=== PATIENT | female | born 1965 | race Caucasian/White ===

== ENCOUNTER 2018-02-15 17:35 | Inpatient (IN) ==
[2018-02-15] MEDS ORDERED: ONDANSETRON 4 MG/2 ML VIAL IV PRN (19:40)
[2018-02-15] MEDS ORDERED: NALOXONE HCL 0.4 MG/ML VIAL IV PRN (19:40)
[2018-02-15] MEDS ORDERED: ACETAMINOPHEN 325 MG TABLET PO PRN (19:40)
[2018-02-15] MEDS ORDERED: MAGNESIUM HYDROXIDE 30 ML ORAL.SUSP PO PRN (19:40)
[2018-02-15] MEDS ORDERED: SENNOSIDES 1 TABLET PO PRN (19:40)
--- NOTE | 2018-02-15 19:54 | Nephrology Consult Note ---
History of Present Illness - Reason for Consult Patient information: Note initiated : 02/15/18 at 7:31 pm Service Date, if different from initiated Date: [] Patient: Teressa Goodman 52 y/o F admitted on 02/15/18 for Hypocalcemia and CHS. Chief Complaint: [] Consult date: 02/15/18 end stage renal disease, hyperkalemia Requesting physician: Moustapha Ortiz - Chief Complaint AMS - History of Present Illness Ms Goodman is a 52 y/o female with h/o ESRD on HD who presented to ER AT [facility] with weakness and AMS Patient is poorly responsive and is not providing much information her significant other states she did not go for her dialysis on Tuesday and was too weak and obtunded to go for her dialysis today, he did not give me any reason to miss her dialysis The family states patient has been very weak and lethargic, unable to walk wiithout support and sleeps a lot as well no h/o fever, GI symptoms no h/o edema, SOB, CP no other significant complaints denies overdosing on meds Review of Systems ROS unobtainable: due to mental status All systems PM: reviewed and no additional remarkable complaints except as stated Past History Past medical history: HTN DM ty[e 2 ESRD on HD anemia of CKD secondary hyperparathyroidism chronic pain on pain meds FORREST Past surgical history: H./O avf SURGERY H/o hysterectomy h/o cholecystectomy Past family history: mother had DM and ESRD Past social history: LIVES WITH SIGNIFICANT other denies ETOH abuse Medications and Allergies Allergies Allergy/AdvReac Type Severity Reaction Status Date / Time morphine Allergy Severe Hives Verified 02/15/18 19:35 Penicillins Allergy Severe Anaphylaxis Verified 02/15/18 19:38 adhesive tape AdvReac Intermediate Rash Verified 02/15/18 19:35 cephalexin AdvReac Intermediate Rash Verified 02/15/18 19:37 Sulfa (Sulfonamide AdvReac Mild Nausea Verified 02/15/18 20:09 Antibiotics) Exam - Vital Signs Vital signs: Temp Pulse Resp BP Pulse Ox 97.8 F 67 10 L 103/59 95 02/15/18 19:00 02/15/18 19:00 02/15/18 19:00 02/15/18 19:00 02/15/18 19:00 - General Appearance General appearance: appears started age, obese EENT: mucous membranes dry Neck: no JVD Respiratory: clear Cardiology: no rub, no edema, normal S1, normal S2 Gastrointestinal: no tenderness, no guarding Integumentary: warm and dry Neurologic: obtunded (has myoclonic tremors ) Musculoskeletal: no erythema, no cyanosis Psychiatric: mood/affect appropriate Assessment and Plan (1) ESRD (end stage renal disease) on dialysis patient will be dialysed tonight for uremia and high K 3.5 hrs using revaclear 400 dialyser, 2K/2.5cA DIALYSATE, QB 400ML/MIN, QD 800ML /MIN NO uf REMOVAL GIven no s/o fluid excess will follow for additional dialysis needs AMS: likely uremia and use of gabapentin and oxycodone contributing Will follow along appreciate hospitalist help in managing this patient Status: Acute (2) Hyperkalemia Status: Acute (3) Altered mental status Status: Acute
[2018-02-15] MEDS ORDERED: DEXTROSE 50% 50 ML VIAL IV PRN (19:59)
[2018-02-15] MEDS ORDERED: DEXTROSE 31 GM ORAL.SUSP PO PRN (19:59)
[2018-02-15] MEDS ORDERED: VASOPRESSIN 20 UNIT in DEXTROSE 5% IN WATER 99 ML IV PRN (20:02)
--- NOTE | 2018-02-15 20:02 | Internal Med History&Physical ---
Medical - H&P: HPI Patient information: Note initiated : 02/15/18 at 7:59 pm Service Date, if different from initiated Date: [] Patient: Teressa Goodman a 52 y/o F admitted on 02/15/18 for Hypocalcemia and CHS. Chief Complaint: [] History of present illness: Ms. Goodman is a 52 year old F with history of diabetes on dialysis. Patient is followed by Dr. Mckinney. Patient gets dialyzed by Tuesday and Tuesday. The patient presented to [facility] ER today for altered mental status. According to the provider in the emergency room the patient has not had dialysis on Tuesday and again missed her dialysis on Tuesday today. The patient was quite drowsy and unable to provide a meaningful history. Patient did wake up on verbal commands as well as light touch however did not answer any meaningful questions. The patient workup was done at [facility] and it was noted that the patient has elevated BUN and creatinine. Patient needed dialysis on an urgent basis. Patient had elevated potassium. Dr. Mckinney the patient's corporate learning consultant is out of town on vacation. [facility] did not have dialysis after 5 PM and the patient was therefore transferred to [facility] for further management. On my evaluation in the hospital at [facility] the patient was drowsy did not answer any questions. Patient was afebrile, heart rate normal, blood pressure soft systolic ranging between 90-110 and diastolic between 50-60. Respiratory rate around 10 -12 Patient blood work at outside hospital shows leukocytosis with WBC count of 13.3 , hemoglobin of 15, lakelets 183. #9 gap 21 calcium 9.9 sodium 133 potassium 6.8 chloride 88 bicarbonate 24 BUN 105 creatinine 9.1 glucose was 89 urinalysis showed proteinuria 100, no signs of infection. Alkaline phosphatase elevated at 46 previously was 149 AST 51 previously 15 and ALT 32 previously 8. Patient had an ultrasound of the abdomen done in the past which showed that she is status post cholecystectomy. The patient was admitted to PCU for further management. ROS unobtainable: due to mental status Medical - H&P: PMH Medical history: Morbid obesity Diabetes mellitus End-stage renal disease on hemodialysis followed by Dr. Mckinney COPD on 2 L oxygen FORREST on CPAP-history of noncompliance as per outside notes. Hypertension Chronic back pain Bipolar disorder Anxiety Posttraumatic stress disorder Hyperlipidemia. Surgical history: Status post cholecystectomy Left arm fistula Hysterectomy Pertinent family history: Mother with history of renal failure on dialysis Father history of CVA Social history: Social history-smoker active Lives in [place] with partner According to previous notes patient denied use of alcohol and substance abuse in the past Medical - H&P: Meds Home Medications Medication Instructions Recorded Confirmed Type ALPRAZolam [Xanax] 0.5 mg PO TIDP PRN 02/15/18 02/15/18 History Albuterol Sulfate [Proair Hfa] 8.5 gm IH QIDP PRN 02/15/18 02/15/18 History Atorvastatin [Lipitor] 1 tab PO QAM 02/15/18 02/15/18 History Clopidogrel Bisulfate [Plavix] 1 tablet PO DAILY 02/15/18 02/15/18 History Escitalopram Oxalate [Lexapro] 1 tab PO QAM 02/15/18 02/15/18 History Furosemide [Lasix] 80 mg PO QAM 02/15/18 02/15/18 History Gabapentin [Neurontin] 300 mg PO HS 02/15/18 02/15/18 History Ibuprofen/Oxycodone HCl 5 mg PO Q6HP PRN 02/15/18 02/15/18 History [Oxycodone-Ibuprofen 5-400 Tab] Linaclotide [Linzess] 1 cap PO QAM 02/15/18 02/15/18 History Linagliptin [Tradjenta] 1 tab PO DAILY 02/15/18 02/15/18 History Lisinopril [Zestril] 40 mg PO QAM 02/15/18 02/15/18 History Melatonin 6 mg PO QHS 02/15/18 02/15/18 History Omeprazole [Prilosec] 1 cap PO DAILY 02/15/18 02/15/18 History Ondansetron HCl [Zofran ODT] 4 mg SL Q6HP PRN 02/15/18 02/15/18 History Pioglitazone [Actos] 15 mg PO QHS 02/15/18 02/15/18 History Sevelamer [Renvela] 2,400 mg PO DAILY 02/15/18 02/15/18 History Zolpidem [Ambien] 5 mg PO HSP PRN 02/15/18 02/15/18 History fluPHENAZine HCL [Fluphenazine HCl] 5 mg PO QHS 02/15/18 02/15/18 History lamoTRIgine [LaMICtal] 50 mg PO BID 02/15/18 02/15/18 History rOPINIRole [Requip] 0.5 mg PO HS PRN 02/15/18 02/15/18 History Allergies Allergy/AdvReac Type Severity Reaction Status Date / Time morphine Allergy Severe Hives Verified 02/15/18 19:35 Penicillins Allergy Severe Anaphylaxis Verified 02/15/18 19:38 adhesive tape AdvReac Intermediate Rash Verified 02/15/18 19:35 cephalexin AdvReac Intermediate Rash Verified 02/15/18 19:37 Sulfa (Sulfonamide AdvReac Mild Nausea Verified 02/15/18 20:09 Antibiotics) Medical - H&P: Exam - Constitutional Vitals: Temp Pulse Resp BP Pulse Ox 97.8 F 65 12 95/51 97 02/15/18 19:17 02/15/18 19:52 02/15/18 19:52 02/15/18 19:46 02/15/18 19:52 Exam: GENERAL: The patient is a well-developed, well-nourished obtunded morbidly obese alert oriented 1.. VITAL SIGNS: Reviewed and as noted elsewhere. HEENT: Head is normocephalic and atraumatic. Extraocular muscles are intact. Pupils are equal, round, and reactive to light. Nares appeared normal. Mouth appears any without lesions. Mucous membranes are dry. Pt had significant facial hair NECK: Normal to inspection, Supple, No lymphadenopathy or thyromegaly. LUNGS: Air entry equal on both sides, no wheezing, crackles or rhonchi noted. No accessory muscles of respiration, anterior exam only. HEART: Regular rate and rhythm normal, S1 and S2 heard, no Gallop, S3 or Rub Noted, No Gross murmur heard. ABDOMEN: Soft, nontender, and nondistended. Positive bowel sounds. No hepatosplenomegaly was noted. Very large pannus difficult to deep palpation EXTREMITIES: No cyanosis, clubbing, rash, lesions or edema. NEUROLOGIC: Cranial nerves II through XII are grossly intact. Motor and Sensory System Grossly Intact PSYCHIATRIC: Drowsy, h/o bipolar disorder SKIN: No ulceration or wounds noted, No jaundice, No rash noted. Medical - H&P: Reslt - ABG Interpretation ABG results: 7.33/56/80/ lac 0.7 Interpretation: respiratory acidosis Medical - H&P: A/P - Narrative A/P Narrative: A/P Altered mental status/ Metabolic encephalopathy/ vs Septic Encephalopathy - Patient has not had HD, missed 2 sessinos, uremia noted. She also is on opiates, and gabapentin which can affect cognitino, CXR shows eve pulmonary infitrates vs chf so septic encephalopathy is possible. Monitor closely, after HD, consider trial of narcan to see if mental status improves. -Hcap pna- send blood cx sputum cx, start on iv aztreonam, vancomycin flagyl and levoflox. Flagyl added given concern for aspiratin in Altered patient. pt is penicillin allergy, also has allergy to cephalosporin. CHF- CXR findings could also be pulm edema, but given hypotension, leucycotysois we are also covering with abx, pt undergoing HD. Sepsis- lactic acid normal, pt bp stable, use vasopressin to keep map > 65. DM- Glucose well controlled on BMP, will monitor glucose levfels and use ssi insulin HTN- hold bp meds given hypotension Morbid Obesity/ FORREST- cpap at night HLD- resume meds once able Psych disorder/ PTSD/ Anxiety- hold meds for now, let patietn wake up before initiating same. COPD- on 2 L oxygen, no wheezing on exam duonebs q6hrs for now, will start steroids if wheezing noted. DVT Hep sq Diet renal carb consitent Full code.
[2018-02-15] MEDS ORDERED: VANCOMYCIN PER PHARMACY IV SCH (20:30)
[2018-02-15] MEDS ORDERED: VANCOMYCIN 1,500 MG in 0.9 % SODIUM CHLORIDE 500 ML IV ONE (20:30)
[2018-02-15] MEDS ORDERED: AZTREONAM 2 GM VIAL IV ONE (20:31)
[2018-02-15] MEDS ORDERED: LEVOFLOXACIN 750 MG/150 ML BAG IV ONE (20:34)
[2018-02-15] MEDS ORDERED: metroNIDAZOLE 500 MG/100 ML BAG IV ONE (21:24)
[2018-02-15] MEDS: metroNIDAZOLE 500 MG/100 ML BAG IV SCH (22:00)
[2018-02-15] MEDS: INSULIN LISPRO 1 UNIT/0.01 ML UNIT SQ SCH (22:10)
[2018-02-15] MEDS: 0.9 % SODIUM CHLORIDE 10 ML SYRINGE IV SCH (22:11)
[2018-02-15] MEDS: HEPARIN 5,000 UNIT/ML VIAL SQ SCH (22:26)
[2018-02-15] MEDS: METOPROLOL TARTRATE 5 MG/5 ML VIAL IV SCH ×5 (22:35→23:13)
[2018-02-15] MEDS ORDERED: METOPROLOL TARTRATE 5 MG/5 ML VIAL IV ONE ×3 (22:38→23:00)
[2018-02-15] MEDS ORDERED: AMIODARONE 150 MG in DEXTROSE 5% IN WATER 50 ML IV ONE (23:17)
[2018-02-15] MEDS ORDERED: AMIODARONE 150 MG/3 ML VIAL IV ONE (23:29)
[2018-02-15] MEDS ORDERED: AMIODARONE 360 MG/200 ML BAG IV ONE (23:30)
[2018-02-15] MEDS: AMIODARONE 360 MG in PREMIX 1 BAG IV SCH (23:43)
[2018-02-16] MEDS: 0.9 % SODIUM CHLORIDE 250 ML IV SCH ×3 (00:55→21:38)
[2018-02-16] MEDS: IPRATROPIUM/ALBUTEROL 3 ML AMPUL.NEB NEB SCH ×4 (01:40→18:20)
[2018-02-16 04:41] LABS: Amphetamine Screen,Urine NONE DETECTED (NONDETECTED); Benzodiazepines Screen,Urine SUSPECT POSITIVE (NONDETECTED); Cocaine Screen,Urine NONE DETECTED (NONDETECTED); Opiate Screen,Urine NONE DETECTED (NONDETECTED); Oxycodone, Urine Screen SUSPECT POSITIVE (NONDETECTED)
[2018-02-16] MEDS: metroNIDAZOLE 500 MG/100 ML BAG IV SCH ×3 (05:37→21:37)
[2018-02-16 05:39] LABS: Basophils # (Auto) 0 K/mcL (0.0-0.3); Basophils % (Auto) 0 % (0.0-2.0); Eosinophils # (Auto) 0 K/mcL (0.0-0.7); Eosinophils % (Auto) 0 % (0.0-7.0); Granulocytes % (Auto) 90.4 % (38.0-78.0); Lymphocytes # (Auto) 0.7 K/mcL (1.5-4.8); Lymphocytes % (Auto) 4.4 % (15.5-49.0); Mean Cell Volume 96.8 fL (80.0-100.0); Mean Corpuscular HGB Conc 33.1 g/dL (31.0-36.0); Mean Corpuscular Hemoglobin 32.1 pg (26.0-34.0); Monocytes # (Auto) 0.9 K/mcL (0.1-0.9); Monocytes % (Auto) 5.2 % (1.0-12.0); Platelet Count 164 K/mcL (140-440); RBC 4.36 M/mcL (4.00-5.20); Red Cell Distribution Width 14.4 % (11.5-14.5)
[2018-02-16] MEDS: 0.9 % SODIUM CHLORIDE 10 ML SYRINGE IV SCH ×3 (05:43→22:42)
[2018-02-16] MEDS: AMIODARONE 360 MG in PREMIX 1 BAG IV SCH ×7 (06:12→22:43)
[2018-02-16] MEDS ORDERED: AMIODARONE 360 MG/200 ML BAG IV ONE (06:14)
--- NOTE | 2018-02-16 06:41 | XRay Report ---
CLINICAL INFORMATION: CHF COMPARISON: 07/31/2014 FINDINGS: The heart is only mildly enlarged but accentuated by suboptimal inspiratory result, leftward rotation and lordotic positioning. Mediastinum is unremarkable. Pulmonary vessels are normal in caliber. Moderate vague infiltrate is seen throughout the right lung - predominantly the apical region. Mild infiltrate also noted in the left midlung. No effusion IMPRESSION: No evidence of CHF. Vague diffuse right lung infiltrate and small left perihilar infiltrate. Consider: ARDS, aspiration pneumonia etc. If the patient can tolerate, a two view upright chest x-ray would be helpful Interpreted and Authenticated by: Madhu Hanley 02/16/18
[2018-02-16 06:45] LABS: ALT/SGPT 31 U/l (0-40); Albumin 3.1 gm/dL (3.2-5.2); Albumin/Globulin Ratio 0.9 (1.0-2.3); Alkaline Phosphatase 490 U/L (39-117); Bilirubin,Direct 0.4 mg/dL (0.0-0.3); Blood Urea Nitrogen 36 mg/dl (6-20); Gamma Glutamyl Transpeptidase 202 U/L (5-36); Uric Acid 3.2 mg/dL (2.5-8.0)
[2018-02-16] MEDS ORDERED: NALOXONE HCL 0.4 MG/ML VIAL IV ONE (08:15)
[2018-02-16] MEDS: INSULIN LISPRO 1 UNIT/0.01 ML UNIT SQ SCH ×4 (08:34→21:31)
[2018-02-16] MEDS: PANTOPRAZOLE 40 MG TABLET PO SCH (08:36)
[2018-02-16] MEDS: AZTREONAM 1 GM VIAL IV SCH ×2 (08:36→21:37)
[2018-02-16] MEDS: HEPARIN 5,000 UNIT/ML VIAL SQ SCH ×2 (08:46→21:37)
--- NOTE | 2018-02-16 09:41 | Ultrasound Report ---
ORIGINAL REPORT CLINICAL INFORMATION: LFTs. History of cholecystectomy COMPARISON: None. FINDINGS: Liver is borderline enlarged - 15 cm in vertical dimension. Echotexture is heterogeneous with slight nodular contour which suggests the possibility of early cirrhosis. 1.3 cm paracolic avascular lesion in the posterior segment of the right hepatic lobe Gallbladder is surgically absent. Common bile duct is 5 mm. Pancreas is normal. No free fluid IMPRESSION: Mild hepatomegaly with inhomogeneous elevated echotexture and slight nodularity of the cortical surface suggesting possible mild cirrhosis. There is also a 1.3 cm nodule in the posterior segment right hepatic lobe. Suggest: Abdominal MRI for more specific evaluation of cirrhosis and hepatoma evaluation ADDENDUM #1 A prior abdominal ultrasound performed at [facility] on 03/23/16 was obtained for comparison. In retrospect, the echogenic structure which is now seen beneath the capsule posteriorly in the right lobe of liver was probably present on the prior study. This appears to be a benign structure and could be a hemangioma or peritoneal fat adjacent to the capsule, within an inflection of the liver capsule. Interpreted and Authenticated by: Brian Koch 02/20/18
--- NOTE | 2018-02-16 12:59 | Nephrology Progress Note ---
Subjective Patient information: Note initiated : 02/16/18 at 12:49 pm Service Date, if different from initiated Date: [] Patient: Teressa Goodman 52 y/o F admitted on 02/15/18 for Hypocalcemia and CHS. Chief Complaint: [] Principal diagnosis: AMS Interval history: Patient seen this am remains lethargic despite dialysis yday BP low normal CXR with concern of aspiration PNA also has elevated LFT, liver US with mild cirrhosis and ? lesion in liver did receive a dose of narcan and then woke up and was partly responsive, utox positive for benzo and oxycodone Pertinent ROS: ROS not possible given patient's mental status Objective - Vital Signs Vital signs: Vital Signs Temp Pulse Pulse Pulse Pulse Resp BP 02/16/18 12:01 97.7 F 7 L 105/57 02/16/18 11:05 12 90/51 02/16/18 10:21 12 100/53 02/16/18 09:00 63 15 02/16/18 08:00 64 12 02/16/18 07:00 99.0 F 63 16 02/16/18 06:38 18 104/73 02/16/18 06:31 14 138/65 02/16/18 06:01 65 15 132/50 02/16/18 05:51 68 17 02/16/18 05:31 70 13 143/56 02/16/18 05:28 71 11 L 152/58 02/16/18 04:33 71 13 128/50 02/16/18 04:23 68 15 117/49 02/16/18 04:20 99.6 F H 69 13 02/16/18 03:31 66 14 116/46 02/16/18 03:08 75 75 77 14 02/16/18 03:02 74 9 L 139/49 02/16/18 02:31 74 17 127/72 02/16/18 02:16 99.0 F 77 11 L 109/56 02/16/18 01:40 77 14 02/16/18 01:35 78 15 138/65 02/16/18 01:11 15 127/87 02/16/18 01:02 133 H 16 105/76 02/16/18 00:51 85 14 137/88 02/16/18 00:41 146 H 17 124/89 02/16/18 00:32 98.8 F 130 H 19 97/63 02/15/18 23:53 98.0 F 118 H 127/83 02/15/18 23:52 44 L 11 L 127/83 02/15/18 23:44 145 H 133/102 02/15/18 23:41 72 14 133/102 02/15/18 23:32 135 H 16 105/76 02/15/18 23:25 14 115/66 02/15/18 23:22 70 12 141/131 02/15/18 23:20 137 H 115/66 02/15/18 23:12 30 L 13 123/111 02/15/18 23:01 72 11 L 134/98 02/15/18 22:58 145 H 135/100 02/15/18 22:55 125 H 12 136/100 02/15/18 22:52 137 H 14 115/67 02/15/18 22:49 25 L 17 134/115 02/15/18 22:48 140 H 134/115 02/15/18 22:42 116 H 12 120/79 02/15/18 22:38 65 12 150/126 02/15/18 22:33 163 H 133/111 02/15/18 22:31 47 L 16 133/118 02/15/18 22:20 81 18 145/92 02/15/18 22:19 160 H 145/92 02/15/18 22:10 70 116/63 02/15/18 22:02 98.4 F 66 10 L 116/63 02/15/18 22:01 67 116/63 02/15/18 21:52 72 13 126/64 02/15/18 21:51 78 126/64 02/15/18 21:42 68 12 142/63 02/15/18 21:32 64 12 128/61 02/15/18 21:23 63 128/58 02/15/18 21:22 64 12 128/58 02/15/18 21:12 63 10 L 122/59 02/15/18 21:11 62 122/59 02/15/18 21:04 63 111/56 02/15/18 21:01 60 10 L 111/56 02/15/18 21:00 68 10 L 02/15/18 20:58 60 109/56 02/15/18 20:56 60 11 L 109/56 02/15/18 20:53 61 102/57 02/15/18 20:47 62 13 102/57 02/15/18 20:30 96.9 F L 61 11 L 118/55 02/15/18 20:17 62 9 L 104/49 02/15/18 20:03 98.7 F 64 9 L 117/58 02/15/18 19:52 65 12 02/15/18 19:46 63 8 L 95/51 02/15/18 19:37 64 13 116/45 02/15/18 19:34 61 8 L 86/56 02/15/18 19:31 61 10 L 80/51 02/15/18 19:17 97.8 F 66 13 94/53 02/15/18 19:00 97.8 F 67 10 L 02/15/18 18:51 97.8 F 67 67 67 10 L BP BP Pulse Ox 02/16/18 12:01 95 02/16/18 11:05 93 02/16/18 10:21 95 02/16/18 09:00 98/55 96 02/16/18 08:00 104/55 95 02/16/18 07:00 102/55 94 02/16/18 06:38 92 02/16/18 06:31 94 02/16/18 06:01 92 02/16/18 05:51 91 02/16/18 05:31 92 02/16/18 05:28 91 02/16/18 04:33 97 02/16/18 04:23 95 02/16/18 04:20 94 02/16/18 03:31 96 02/16/18 03:08 95 02/16/18 03:02 97 02/16/18 02:31 91 02/16/18 02:16 99 02/16/18 01:40 02/16/18 01:35 97 02/16/18 01:11 02/16/18 01:02 95 02/16/18 00:51 95 02/16/18 00:41 96 02/16/18 00:32 96 02/15/18 23:53 02/15/18 23:52 97 02/15/18 23:44 02/15/18 23:41 92 02/15/18 23:32 02/15/18 23:25 02/15/18 23:22 100 08/01/18 23:20 02/15/18 23:12 98 02/15/18 23:01 95 02/15/18 22:58 02/15/18 22:55 93 02/15/18 22:52 02/15/18 22:49 96 02/15/18 22:48 02/15/18 22:42 94 02/15/18 22:38 94 02/15/18 22:33 02/15/18 22:31 92 02/15/18 22:20 94 02/15/18 22:19 02/15/18 22:10 02/15/18 22:02 96 02/15/18 22:01 02/15/18 21:52 99 02/15/18 21:51 02/15/18 21:42 96 02/15/18 21:32 97 02/15/18 21:23 02/15/18 21:22 98 02/15/18 21:12 97 02/15/18 21:11 02/15/18 21:04 02/15/18 21:01 97 02/15/18 21:00 94 02/15/18 20:58 02/15/18 20:56 98 02/15/18 20:53 02/15/18 20:47 97 02/15/18 20:30 96 02/15/18 20:17 95 02/15/18 20:03 94 02/15/18 19:52 97 02/15/18 19:46 96 02/15/18 19:37 95 02/15/18 19:34 95 02/15/18 19:31 96 02/15/18 19:17 95 02/15/18 19:00 103/59 95 02/15/18 18:51 103/59 95 Intake and Output 02/15/18 02/16/18 02/16/18 21:59 05:59 13:59 Intake Total 750 / 750 200 / 200 Output Total 55 / 55 72 / 72 Balance 695 / 695 128 / 128 Intake: IV 750 / 750 200 / 200 Nexterone 360 mg In Premix 1 200 / 200 Bag @ 1 MG/MIN 33.33 mls/hr IV .Q6H1M [facility] Rx#:[id number] Output: Urine Catheter Amount 55 / 55 72 / 72 Hemodialysis UF 0 / 0 Other: Weight 226 lb 4 oz Intake & Output: Intake & Output 02/15/18 02/16/18 02/16/18 21:59 05:59 13:59 Intake Total 750 / 750 200 / 200 Output Total Balance 695 / 695 128 / 128 Weight 226 lb 4 oz Intake: IV 750 / 750 200 / 200 Nexterone 360 mg In Premix 1 200 / 200 Bag @ 1 MG/MIN 33.33 mls/hr IV .Q6H1M [facility] Rx#:[id number] Output: Urine Catheter Amount Hemodialysis UF 0 / 0 - General Appearance General appearance: appears started age, obese EENT: mucous membranes moist Neck: no JVD Respiratory: clear Cardiology: no rub, regular rate, regular rhythm Gastrointestinal: no tenderness, no guarding Integumentary: warm and dry Neurologic: no focal deficit (awake but drowsy, no myoclonic tremors ) Musculoskeletal: no erythema, no cyanosis Psychiatric: mood/affect appropriate - Lab 02/16/18 04:08 02/16/18 04:08 Most recent lab results Calcium 9.0 mg/dl (8.6-10.4) 02/16/18 04:08 Phosphorus 3.9 mg/dL (2.7-4.5) 02/16/18 04:08 Magnesium 2.4 mg/dL (1.6-2.5) 02/16/18 04:08 Assessment and Plan (1) ESRD (end stage renal disease) on dialysis No emergent need for dialysis today will monitor for the same Ams likely from sepsis, prescription pain meds BUN much improved will follow closely aspiration pna on antibiotics will follow closely plan for HD tomorrow unless emergent need arises Status: Acute (2) Hyperkalemia Status: Acute (3) Altered mental status Status: Acute
--- NOTE | 2018-02-16 14:02 | Internal Med Progress Note ---
Medical - PN: Subj Patient information: Note initiated : 02/16/18 at 1:50 pm Service Date, if different from initiated Date: [] Patient: Teressa Goodman a 52 y/o F admitted on 02/15/18 for Hypocalcemia and CHS. Chief Complaint: [] Interval history: Ms. Goodman is a 52 year old F with history of diabetes on dialysis. Patient is followed by Dr. Mckinney. Patient gets dialyzed by Tuesday and Tuesday. The patient presented to [facility] ER today for altered mental status. According to the provider in the emergency room the patient has not had dialysis on Tuesday and again missed her dialysis on Tuesday today. The patient was quite drowsy and unable to provide a meaningful history. Patient did wake up on verbal commands as well as light touch however did not answer any meaningful questions. The patient workup was done at [facility] and it was noted that the patient has elevated BUN and creatinine. Patient needed dialysis on an urgent basis. Patient had elevated potassium. Dr. Mckinney the patient's education research analyst is out of town on vacation. [facility] did not have dialysis after 5 PM and the patient was therefore transferred to [facility] for further management. [facility] the patient was drowsy did not answer any questions. Patient was afebrile, heart rate normal, blood pressure soft systolic ranging between 90-110 and diastolic between 50-60. Respiratory rate around 10 -12 Patient blood work at outside hospital shows leukocytosis with WBC count of 13.3 , hemoglobin of 15, lakelets 183. #9 gap 21 calcium 9.9 sodium 133 potassium 6.8 chloride 88 bicarbonate 24 BUN 105 creatinine 9.1 glucose was 89 urinalysis showed proteinuria 100, no signs of infection. Alkaline phosphatase elevated at 46 previously was 149 AST 51 previously 15 and ALT 32 previously 8. Patient had an ultrasound of the abdomen done in the past which showed that she is status post cholecystectomy. The patient was admitted to PCU for further management. 02/16 Pt seen exmined, by the bed side, pt quite drowsy, but woke up with verbal commands, non coherent answers, patient was still having pin point pupils and was quite drowsy despite HD last night. The patient received 0.4mg of narcan with good response and she woke up. Last night she had run of AFib with RVR not responding to metoprolol 5mg x 3, given labile blood pressure, amiodarone was initiated, pt hr is now back to sinus. I dont anticipate patient needing chcf amiodarone, she will complete the loading dose. The patient remains on antibiotics for Pneumonia, hcap/ aspiration pna cultures neg so far Nephrology following, electrolytes stable, no need for HD today, anticipate tomorrow LFt abnormla, USG liver done, noted a liver mass, needs MRI for further evauation, will be considered by oncoming provider. Pertinent ROS: unable due to mental status - Constitutional Vitals: Vital Signs Temp Pulse Resp BP Pulse Ox 98.7 F 74 16 138/85 95 02/16/18 12:08 02/16/18 13:35 02/16/18 13:35 02/16/18 13:01 02/16/18 13:01 Period Temp Pulse Resp BP Sys/Hunter Pulse Ox Last 24 Hr 96.9 F-99.6 F 25-163 7-19 80-152/45-131 91-100 Intake and Output 02/15/18 02/16/18 02/16/18 21:59 05:59 13:59 Intake Total 750 / 750 300 / 300 Output Total 55 / 55 72 / 72 Balance 695 / 695 228 / 228 Weight 226 lb 4 oz Intake & Output: Intake & Output 02/15/18 02/16/18 02/16/18 21:59 05:59 13:59 Intake Total 750 / 750 300 / 300 Output Total 55 / 55 72 / 72 Balance 695 / 695 228 / 228 Weight 226 lb 4 oz Intake: IV 750 / 750 300 / 300 Nexterone 360 mg In Premix 1 200 / 200 Bag @ 1 MG/MIN 33.33 mls/hr IV .Q6H1M [facility] Rx#:[id number] Output: Urine Catheter Amount 55 / 55 72 / 72 Hemodialysis UF 0 / 0 Exam: Constitutional; Afebrile, cooperative, drowsy not in distress. was more alert after narcan Respiratory system: Air Entry equal on both sides, No crackles or wheezing, no rhonchi. CVS- Rate rhythm regular, S1,S2 heard, no gallop, no rub. Abdomen- Soft nontender abdomen, no organomegaly, no tenderness, no guarding or rigidity, large abdomen, difficult for deep palpation SPAR CAP BEVELER- AOOx1, moving all extremities, no gross focal deficit noted. Medical - PN: Obj Da - Labs CBC & Chem 7: 02/16/18 04:08 02/16/18 04:08 Labs: Abnormal Lab Results 02/16/18 02/16/18 02/16/18 04:08 04:08 02:14 WBC 16.5 H MPV 10.7 H Gran % 90.4 H Lymph % (Auto) 4.4 L Gran # 14.9 H Lymph # (Auto) 0.7 L Chloride 93 L BUN 36 H Creatinine 4.8 H Glucose 110 H Direct Bilirubin 0.4 H GGT 202 H AST 42 H Alkaline Phosphatase 490 H Lactate Dehydrogenase 274 H Albumin 3.1 L Albumin/Globulin Ratio 0.9 L Ur Oxycodone Screen Suspect positive A U Benzodiazepines Scrn Suspect positive A Meds: Medications Acetaminophen (Tylenol) 650 mg PO Q4-6HP PRN PRN Reason: PAIN/FEVER > 101 Albuterol/Ipratropium (Duoneb) 3 ml NEB Q6HRT [facility] Last Admin: 02/16/18 13:35 Dose: 3 ml Aztreonam (Azactam) 0.5 gm IV Q12H [facility] Last Admin: 02/16/18 08:36 Dose: 0.5 gm Dextrose (Dextrose 50%) 0 ml IV UD PRN PRN Reason: Hypoglycemia Last Admin: 02/15/18 22:11 Dose: 25 ml Diagnostic Test (Pha) (Accu-Chek) 1 each FS ACHS [facility] Last Admin: 02/16/18 13:37 Dose: 1 each Glucose (Insta-Glucose) 15 gm PO PRN PRN PRN Reason: Hypoglycemia Heparin Sodium (Porcine) (Heparin) 5,000 unit SQ Q12 [facility] Last Admin: 02/16/18 08:46 Dose: 5,000 unit Sodium Chloride (Sodium Chloride 0.9%) 250 mls @ 20 mls/hr IV .[id number] [facility] Last Admin: 02/16/18 08:34 Dose: Not Given Vasopressin 20 unit/ Dextrose 100 mls @ 6 mls/hr IV Q17H PRN; Protocol PRN Reason: Hypotension Metronidazole (Flagyl) 500 mg in 100 mls @ 100 mls/hr IV Q8H [facility] Last Infusion: 02/16/18 06:45 Dose: Infused Levofloxacin (Levaquin) 500 mg in 100 mls @ 100 mls/hr IV Q48H [facility] AMIODARONE 360 mg/ Premix 200 mls @ 33.33 mls/hr IV .Q6H1M [facility]; Protocol Last Admin: 02/16/18 13:36 Dose: Not Given AMIODARONE 360 mg/ Premix 200 mls @ 16.66 mls/hr IV .Q12H1M [facility]; Protocol Last Admin: 02/16/18 13:35 Dose: Not Given Insulin Human Lispro (Humalog) 0 unit SQ ACHS [facility]; Protocol Last Admin: 02/16/18 13:42 Dose: Not Given Magnesium Hydroxide (Milk Of Magnesia) 30 ml PO DAILYP PRN PRN Reason: Constipation Naloxone HCl (Narcan) 0.1 mg IV Q2MIN PRN PRN Reason: Opiate Reversal Ondansetron HCl (Zofran) 4 mg IV Q4-6HP PRN PRN Reason: Nausea And Vomiting Pantoprazole Sodium (Protonix) 40 mg PO QAMAC [facility] Last Admin: 02/16/18 08:36 Dose: 40 mg Senna (Senokot) 2 tab PO HSP PRN PRN Reason: Constipation Sodium Chloride (Saline Flush) 10 ml IV Q8 [facility] Last Admin: 02/16/18 13:43 Dose: 10 ml Vancomycin HCl (Vancomycin Per Pharmacy) 1 order IV UD [facility] Medical - PN: A/P - Time Spent With Patient Total time spent is greater than 50% in coordination of care (as documented) at patient's floor/unit and/or counseling patient: - Narrative A/P Narrative: A/P Altered mental status/ Metabolic encephalopathy/ vs Septic Encephalopathy - Pt mental status improved from narcan. _Head CT reported as neg by Er provider in [facility] pna- send blood cx sputum cx, start on iv aztreonam, vancomycin flagyl and levoflox. Flagyl added given concern for aspiratin in Altered patient. pt is penicillin allergy, also has allergy to cephalosporin. CHF- CXR findings could also be pulm edema, but given hypotension, leucycotysois we are also covering with abx, pt undergoing HD. Sepsis- lactic acid normal, pt bp stable, use vasopressin to keep map > 65. DM- Glucose well controlled on BMP, will monitor glucose levfels and use ssi insulin HTN- hold bp meds given hypotension Morbid Obesity/ FORREST- cpap at night HLD- resume meds once able Psych disorder/ PTSD/ Anxiety- hold meds for now, let patient wake up before initiating same. COPD- on 2 L oxygen, no wheezing on exam duonebs q6hrs for now, will start steroids if wheezing noted. DVT Hep sq Diet renal carb consitent Full code. Medical - PN: Qual - VTE Deep Vein Thrombosis/Pulmonary Embolism Present on Admission: No
[2018-02-16] MEDS: SEVELAMER 800 MG TABLET PO SCH (17:34)
[2018-02-16] MEDS: GABAPENTIN 300 MG CAPSULE PO SCH (21:38)
[2018-02-16] MEDS: lamoTRIgine 100 MG TABLET PO SCH (21:42)
[2018-02-16] MEDS: ATORVASTATIN 20 MG TABLET PO SCH (21:45)
[2018-02-16] MEDS: rOPINIRole 0.25 MG TABLET PO PRN (22:10)
[2018-02-17] MEDS: IPRATROPIUM/ALBUTEROL 3 ML AMPUL.NEB NEB SCH ×4 (00:40→19:09)
[2018-02-17] MEDS ORDERED: DILTIAZEM 25 MG/5 ML VIAL IV ONE ×2 (05:02→23:36)
[2018-02-17] MEDS: AMIODARONE 360 MG in PREMIX 1 BAG IV SCH (05:19)
[2018-02-17] MEDS: metroNIDAZOLE 500 MG/100 ML BAG IV SCH ×3 (05:33→22:00)
[2018-02-17] MEDS: 0.9 % SODIUM CHLORIDE 10 ML SYRINGE IV SCH ×3 (05:33→22:00)
[2018-02-17 06:43] LABS: Basophils # (Auto) 0 K/mcL (0.0-0.3); Basophils % (Auto) 0.4 % (0.0-2.0); Eosinophils # (Auto) 0.1 K/mcL (0.0-0.7); Eosinophils % (Auto) 1.2 % (0.0-7.0); Lymphocytes # (Auto) 1.6 K/mcL (1.5-4.8); Lymphocytes % (Auto) 16.9 % (15.5-49.0); Mean Cell Volume 97.7 fL (80.0-100.0); Mean Corpuscular HGB Conc 33.3 g/dL (31.0-36.0); Mean Corpuscular Hemoglobin 32.5 pg (26.0-34.0); Monocytes # (Auto) 0.8 K/mcL (0.1-0.9); Monocytes % (Auto) 8.5 % (1.0-12.0); Platelet Count 160 K/mcL (140-440); RBC 4.01 M/mcL (4.00-5.20); Red Cell Distribution Width 14.7 % (11.5-14.5)
[2018-02-17] MEDS: INSULIN LISPRO 1 UNIT/0.01 ML UNIT SQ SCH ×4 (07:45→20:22)
[2018-02-17 07:59] LABS: ALT/SGPT 25 U/l (0-40); Albumin 2.9 gm/dL (3.2-5.2); Albumin/Globulin Ratio 0.9 (1.0-2.3); Alkaline Phosphatase 452 U/L (39-117); Bilirubin,Direct 0.3 mg/dL (0.0-0.3); Blood Urea Nitrogen 51 mg/dl (6-20); Gamma Glutamyl Transpeptidase 187 U/L (5-36); Uric Acid 4.4 mg/dL (2.5-8.0)
[2018-02-17] MEDS: lamoTRIgine 100 MG TABLET PO SCH ×2 (08:15→20:21)
[2018-02-17] MEDS: AZTREONAM 1 GM VIAL IV SCH ×2 (08:15→20:22)
[2018-02-17] MEDS: SEVELAMER 800 MG TABLET PO SCH ×3 (08:15→16:25)
[2018-02-17] MEDS: HEPARIN 5,000 UNIT/ML VIAL SQ SCH ×2 (08:15→20:20)
[2018-02-17] MEDS: CLOPIDOGREL 75 MG TABLET PO SCH (08:16)
[2018-02-17] MEDS: 0.9 % SODIUM CHLORIDE 250 ML IV SCH (08:16)
[2018-02-17] MEDS: ESCITALOPRAM 20 MG TABLET PO SCH (08:16)
[2018-02-17] MEDS: OMEPRAZOLE 20 MG CAPSULE PO SCH (08:16)
[2018-02-17] MEDS: PANTOPRAZOLE 40 MG TABLET PO SCH (08:16)
--- NOTE | 2018-02-17 08:56 | Nephrology Progress Note ---
Subjective Patient information: Note initiated : 02/17/18 at 8:54 am Service Date, if different from initiated Date: [] Patient: Teressa Goodman 52 y/o F admitted on 02/15/18 for Hypocalcemia and CHS. Chief Complaint: [] Principal diagnosis: AMS Interval history: Patient seen this am mental status much improved denies SOB, CP no edema no c/o pain continues to have intermittent episodes of Afib since amiodarone was stopped, good response to cardizem but her BP gets low with this Pertinent ROS: as above Objective - Vital Signs Vital signs: Vital Signs Temp Pulse Pulse Resp BP BP Pulse Ox 02/17/18 07:45 99.8 F H 02/17/18 07:31 14 81/56 97 02/17/18 07:23 60 12 2 L 02/17/18 07:01 14 93/58 95 02/17/18 06:31 18 102/63 98 02/17/18 06:16 14 107/59 96 02/17/18 06:11 14 92/59 95 02/17/18 06:06 13 88/54 95 02/17/18 06:03 12 96 02/17/18 06:01 13 81/59 96 02/17/18 05:56 11 L 90/57 96 02/17/18 05:51 15 91/57 91 02/17/18 05:46 12 99/59 92 02/17/18 05:41 12 97/62 94 02/17/18 05:37 14 84/57 02/17/18 05:31 16 95/67 02/17/18 05:26 16 87/62 02/17/18 05:21 20 79/64 02/17/18 05:16 12 96/68 93 02/17/18 05:11 11 L 87/58 90 02/17/18 05:06 11 L 97/67 92 02/17/18 05:01 10 L 95/70 96 02/17/18 04:56 16 103/68 96 02/17/18 04:01 12 92/59 96 02/17/18 03:01 12 100/69 98 02/17/18 02:01 8 L 92/63 96 02/17/18 02:00 97 02/17/18 01:49 15 110/74 97 02/17/18 01:02 13 85/69 95 02/17/18 00:32 14 102/68 95 02/17/18 00:24 12 87/63 96 02/17/18 00:01 8 L 103/69 98 02/16/18 23:17 13 97 02/16/18 22:44 14 94 02/16/18 21:04 11 L 02/16/18 20:00 95 02/16/18 19:10 13 02/16/18 18:54 65 12 100 02/16/18 18:20 65 10 L 02/16/18 18:01 12 100 02/16/18 17:01 12 125/68 96 02/16/18 16:01 14 98/41 97 02/16/18 15:51 98.2 F 10 L 133/61 99 02/16/18 15:01 13 133/61 02/16/18 14:01 11 L 122/60 93 02/16/18 14:00 61 12 97 02/16/18 13:35 74 16 02/16/18 13:01 13 138/85 95 02/16/18 12:08 98.7 F 14 110/53 96 02/16/18 12:01 97.7 F 7 L 105/57 95 02/16/18 11:05 12 90/51 93 02/16/18 10:21 12 100/53 95 02/16/18 09:00 63 15 98/55 96 Intake and Output 02/16/18 02/17/18 02/17/18 21:59 05:59 13:59 Intake Total 529 / 529 411 / 411 100 / 100 Output Total 70 70 Balance 524 / 524 341 / 341 100 / 100 Intake: IV 289 / 289 211 / 211 100 / 100 Nexterone 360 mg In Premix 1 189 / 189 111 / 111 Bag @ 0.5 MG/MIN 16.66 mls/hr IV .Q12H1M [facility] Rx#:[id number] Oral 240 / 240 200 / 200 Output: Urine Catheter Amount Other: Weight 226 lb 8 oz Intake & Output: Intake & Output 02/16/18 02/17/18 02/17/18 21:59 05:59 13:59 Intake Total 529 / 529 411 / 411 100 / 100 Output Total 70 Balance 524 / 524 341 / 341 100 / 100 Weight 226 lb 8 oz Intake: IV 289 / 289 211 / 211 100 / 100 Nexterone 360 mg In Premix 1 189 / 189 111 / 111 Bag @ 0.5 MG/MIN 16.66 mls/hr IV .Q12H1M [facility] Rx#:[id number] Oral 240 / 240 200 / 200 Output: Urine Catheter Amount 5 / 5 70 / 70 - General Appearance General appearance: appears started age, obese EENT: mucous membranes moist Neck: no JVD Respiratory: rales (right base) Cardiology: no rub, no edema, regular rate, regular rhythm Gastrointestinal: no tenderness Integumentary: no rash Neurologic: no focal deficit, alert and oriented x3 Musculoskeletal: no erythema, no cyanosis Psychiatric: mood/affect appropriate - Lab 02/17/18 04:28 02/17/18 04:28 Most recent lab results Calcium 9.3 mg/dl (8.6-10.4) 02/17/18 04:28 Phosphorus 4.9 mg/dL (2.7-4.5) H 02/17/18 04:28 Magnesium 2.6 mg/dL (1.6-2.5) H 02/17/18 04:28 Assessment and Plan (1) ESRD (end stage renal disease) on dialysis HD today for 3.5 hrs using revaclear 400 dialyser, 3k/2.5Ca dialysate, 35 bicarb , 135 sodium, UF goal to DW of 100Kg Ams resolved aspiration pna on antibiotics intermittent Afib: managed by hospitalist please reduce gabapentin dose to 100mg HS on discharge Thank you for giving [facility] an opportunity [facility] , appreciate it Status: Acute (2) Hyperkalemia Status: Acute (3) Altered mental status Status: Acute
[2018-02-17] MEDS ORDERED: LEVOFLOXACIN 500 MG/100 ML BAG IV SCH (09:00)
[2018-02-17] MEDS: DILTIAZEM 25 MG/5 ML VIAL IV PRN ×2 (15:34→20:58)
[2018-02-17 16:45] LABS: Vancomycin,Random 10.8 ug/mL
[2018-02-17] MEDS ORDERED: VANCOMYCIN 1,500 MG in 0.9 % SODIUM CHLORIDE 500 ML IV ONE (19:00)
[2018-02-17] MEDS ORDERED: DILTIAZEM 30 MG TABLET ONE ×2 (19:10→23:38)
[2018-02-17] MEDS: DILTIAZEM 30 MG TABLET PO SCH (19:10)
--- NOTE | 2018-02-17 19:30 | Internal Med Progress Note ---
Medical - PN: Subj Patient information: Note initiated : 02/17/18 at 7:27 pm Service Date, if different from initiated Date: [] Patient: Teressa Goodman a 52 y/o F admitted on 02/15/18 for Hypocalcemia and CHS. Chief Complaint: f/u encephalopathy, ESRD Interval history: 02/15 Ms. Goodman is a 52 year old F with history of diabetes on dialysis. Patient is followed by Dr. Mckinney. Patient gets dialyzed by Tuesday and Tuesday. The patient presented to [facility] ER today for altered mental status. According to the provider in the emergency room the patient has not had dialysis on Tuesday and again missed her dialysis on Tuesday today. The patient was quite drowsy and unable to provide a meaningful history. Patient did wake up on verbal commands as well as light touch however did not answer any meaningful questions. The patient workup was done at [facility] and it was noted that the patient has elevated BUN and creatinine. Patient needed dialysis on an urgent basis. Patient had elevated potassium. Dr. 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 [facility] did not have dialysis after 5 PM and the patient was therefore transferred to [facility] for further management. On my evaluation in the hospital at [facility] the patient was drowsy did not answer any questions. Patient was afebrile, heart rate normal, blood pressure soft systolic ranging between 90-110 and diastolic between 50-60. Respiratory rate around 10 -12 Patient blood work at outside hospital shows leukocytosis with WBC count of 13.3 , hemoglobin of 15, lakelets 183. #9 gap 21 calcium 9.9 sodium 133 potassium 6.8 chloride 88 bicarbonate 24 BUN 105 creatinine 9.1 glucose was 89 urinalysis showed proteinuria 100, no signs of infection. Alkaline phosphatase elevated at 46 previously was 149 AST 51 previously 15 and ALT 32 previously 8. Patient had an ultrasound of the abdomen done in the past which showed that she is status post cholecystectomy. The patient was admitted to PCU for further management. 02/16 Pt seen examined, by the bed side, pt quite drowsy, but woke up with verbal commands, non coherent answers, patient was still having pin point pupils and was quite drowsy despite HD last night. The patient received 0.4mg of narcan with good response and she woke up. Last night she had run of AFib with RVR not responding to metoprolol 5mg x 3, given labile blood pressure, amiodarone was initiated, pt hr is now back to sinus. I don't anticipate patient needing terminal clerk amiodarone, she will complete the loading dose. The patient remains on antibiotics for Pneumonia, hcap/ aspiration pna cultures neg so far Nephrology following, electrolytes stable, no need for HD today, anticipate tomorrow LFT abnormal, USG liver done, noted a liver mass, needs MRI for further evaluation, will be considered by oncoming provider. 02/17 Tolerated hemodialysis today. Remains awake, still groggy. Remained in NSR yesterday until end of amiodarone infusion shortly after midnight, then went back into A. fib. Eventually converted back to sinus rhythm after one IV dose of diltiazem. Went back into A. fib towards end of dialysis, again converted after 1 dose of IV diltiazem. Nephrology is recommended decreasing gabapentin 100 mg daily and stopping lisinopril at time of discharge. Pertinent ROS: Denies fever, chills. Appetite improving. No nausea, no vomiting. No chest pain. - Constitutional Vitals: Vital Signs Temp Pulse Resp BP Pulse Ox 98.3 F 103 H 12 111/62 98 02/17/18 15:16 02/17/18 19:10 02/17/18 19:10 02/17/18 19:01 02/17/18 19:10 Period Temp Pulse Resp BP Sys/Hunter Pulse Ox Last 24 Hr 98.1 F-99.8 F 59-143 8-21 79-161/54-105 2-98 Intake and Output 02/17/18 02/17/18 02/17/18 05:59 13:59 21:59 Intake Total 411 / 411 560 / 560 640 / 640 Output Total 70 / 70 1200 / 1200 Balance 341 / 341 560 / 560 -560 / -560 Weight 222 lb 14.197 oz Patient Weight 02/18/18 05:59 Weight 222 lb 14.197 oz Intake & Output: Intake & Output 02/17/18 02/17/18 02/17/18 05:59 13:59 21:59 Intake Total 411 / 411 560 / 560 640 / 640 Output Total 70 / 70 1200 / 1200 Balance 341 / 341 560 / 560 -560 / -560 Weight 222 lb 14.197 oz Intake: IV 211 / 211 200 / 200 Nexterone 360 mg In Premix 1 111 / 111 Bag @ 0.5 MG/MIN 16.66 mls/hr IV .Q12H1M [facility] Rx#:[id number] Oral 200 / 200 360 / 360 640 / 640 Output: Urine Catheter Amount 70 / 70 Hemodialysis UF 1200 / 1200 Other: Meal Breakfast Dinner Percent of Meal Consumed 50% 75% Feeding Ability Independent Stool Size Large Stool Color Brown Stool Consistency Dry and Hard Formed Loose # Voids 1 # Bowel Movements 1 - Head Head exam: Present: atraumatic - Eye Eye exam: Present: normal appearance - ENT ENT exam: Present: mucous membranes moist - Neck Neck exam: Present: full ROM - Respiratory Respiratory exam: Present: decreased breath sounds (right base). Absent: accessory muscle use, rhonchi, stridor, wheezes - Cardiovascular Cardiovascular exam: Present: normal rate and rhythm, +S1, +S2. Absent: systolic murmur - GI/Abdominal GI/Abdominal exam: Present: normal bowel sounds, soft (obese). Absent: tenderness - Extremities Exam Extremities exam: Absent: pedal edema - Neurological Exam Neurological exam: Present: altered (responses a little slow, however). Absent : motor sensory deficit Medical - PN: Obj Da - Labs CBC & Chem 7: 02/17/18 04:28 02/17/18 04:28 Labs: Abnormal Lab Results 02/17/18 02/17/18 02/16/18 04:28 04:28 04:08 WBC RDW 14.7 H MPV Gran % Lymph % (Auto) Gran # Lymph # (Auto) Chloride 92 L 93 L Anion Gap 18.0 H BUN 51 H 36 H Creatinine 6.4 H* 4.8 H Glucose 110 H Phosphorus 4.9 H Magnesium 2.6 H Direct Bilirubin 0.4 H GGT 187 H 202 H AST 42 H Alkaline Phosphatase 452 H 490 H Lactate Dehydrogenase 274 H Albumin 2.9 L 3.1 L Albumin/Globulin Ratio 0.9 L 0.9 L Ur Oxycodone Screen U Benzodiazepines Scrn 02/16/18 02/16/18 04:08 02:14 WBC 16.5 H RDW MPV 10.7 H Gran % 90.4 H Lymph % (Auto) 4.4 L Gran # 14.9 H Lymph # (Auto) 0.7 L Chloride Anion Gap BUN Creatinine Glucose Phosphorus Magnesium Direct Bilirubin GGT AST Alkaline Phosphatase Lactate Dehydrogenase Albumin Albumin/Globulin Ratio Ur Oxycodone Screen Suspect positive A U Benzodiazepines Scrn Suspect positive A Microbiology 02/15/18 20:42 Blood Blood Culture - Preliminary 02/15/18 20:54 Blood Blood Culture - Preliminary 02/15/18 19:29 Nose - Both Right and Left MRSA (PCR) - Final Meds: Medications Acetaminophen (Tylenol) 650 mg PO Q4-6HP PRN PRN Reason: PAIN/FEVER > 101 Albuterol/Ipratropium (Duoneb) 3 ml NEB Q6HRT [facility] Last Admin: 02/17/18 19:09 Dose: 3 ml Atorvastatin Calcium (Lipitor) 20 mg PO HS [facility] Last Admin: 02/16/18 21:45 Dose: 20 mg Aztreonam (Azactam) 0.5 gm IV Q12H [facility] Last Admin: 02/17/18 08:15 Dose: 0.5 gm Clopidogrel Bisulfate (Plavix) 75 mg PO DAILY [facility] Last Admin: 02/17/18 08:16 Dose: 75 mg Dextrose (Dextrose 50%) 0 ml IV UD PRN PRN Reason: Hypoglycemia Last Admin: 02/15/18 22:11 Dose: 25 ml Diagnostic Test (Pha) (Accu-Chek) 1 each FS ACHS [facility] Last Admin: 02/17/18 16:14 Dose: 1 each Diltiazem HCl (Cardizem) 10 mg IV Q4HP PRN PRN Reason: Heart Rate- High Last Admin: 02/17/18 15:34 Dose: 10 mg Diltiazem HCl (Cardizem) 30 mg PO Q6H [facility] Last Admin: 02/17/18 19:10 Dose: 30 mg Escitalopram Oxalate (Lexapro) 20 mg PO DAILY [facility] Last Admin: 02/17/18 08:16 Dose: 20 mg Gabapentin (Neurontin) 300 mg PO HS [facility] Last Admin: 02/16/18 21:38 Dose: 300 mg Glucose (Insta-Glucose) 15 gm PO PRN PRN PRN Reason: Hypoglycemia Heparin Sodium (Porcine) (Heparin) 5,000 unit SQ Q12 [facility] Last Admin: 02/17/18 08:15 Dose: 5,000 unit Sodium Chloride (Sodium Chloride 0.9%) 250 mls @ 20 mls/hr IV .[id number] [facility] Last Admin: 02/17/18 08:16 Dose: Not Given Vasopressin 20 unit/ Dextrose 100 mls @ 6 mls/hr IV Q17H PRN; Protocol PRN Reason: Hypotension Metronidazole (Flagyl) 500 mg in 100 mls @ 100 mls/hr IV Q8H [facility] Last Admin: 02/17/18 15:34 Dose: 100 mls/hr Levofloxacin (Levaquin) 500 mg in 100 mls @ 100 mls/hr IV Q48H [facility] Last Infusion: 02/17/18 09:21 Dose: Infused Vancomycin HCl 1,500 mg/ (Sodium Chloride) 500 mls @ 333.3 mls/hr IV ONCE ONE Stop: 02/17/18 20:30 Last Admin: 02/17/18 19:08 Dose: 333.3 mls/hr Insulin Human Lispro (Humalog) 0 unit SQ ACHS [facility]; Protocol Last Admin: 02/17/18 16:24 Dose: Not Given Lamotrigine (Lamictal) 50 mg PO BID [facility] Last Admin: 02/17/18 08:15 Dose: 50 mg Magnesium Hydroxide (Milk Of Magnesia) 30 ml PO DAILYP PRN PRN Reason: Constipation Naloxone HCl (Narcan) 0.1 mg IV Q2MIN PRN PRN Reason: Opiate Reversal Fluphenazine Hcl 5 (Mg Tab) 5 mg PO QHS [facility] Last Admin: 02/16/18 21:38 Dose: 5 mg [facility]ep[facility]c) [facility] Last Admin: 02/17/18 08:16 Dose: 20 mg Ondansetron HCl (Zofran) 4 mg IV Q4-6HP PRN PRN Reason: Nausea And Vomiting Pantoprazole Sodium (Protonix) [facility] Last Admin: 02/17/18 08:16 Dose: 40 mg Linaclotide (Linzess () 145 Mcg Cap) 1 dose PO DAILY [facility] Last Admin: 02/17/18 08:51 Dose: 1 dose Ropinirole HCl (Requip) 0.5 mg PO HSP PRN PRN Reason: RESTLESS LEGS Last Admin: 02/16/18 22:10 Dose: 0.5 mg Senna (Senokot) 2 tab PO HSP PRN PRN Reason: Constipation Sevelamer Carbonate (Renvela) 3,200 mg PO TIDCC [facility] Last Admin: 02/17/18 16:25 Dose: 3,200 mg Sodium Chloride (Saline Flush) 10 ml IV Q8 [facility] Last Admin: 02/17/18 14:52 Dose: 10 ml Vancomycin HCl (Vancomycin Per Pharmacy) 1 order IV UD JANELL - Impressions Liver U/S IMPRESSION: Mild hepatomegaly with inhomogeneous elevated echotexture and slight nodularity of the cortical surface suggesting possible mild cirrhosis. There is also a 1.3 cm nodule in the posterior segment right hepatic lobe. Suggest: Abdominal MRI for more specific evaluation of cirrhosis and hepatoma evaluation Medical - PN: A/P - Narrative A/P Narrative: Altered mental status/ Metabolic encephalopathy/ vs Septic Encephalopathy - Pt mental status improved from Narcan on 02/16, remains a little groggy, suspect combination medications and pneumonia. -HCAP PNA- Cultures NGTD. Continues on iv aztreonam, vancomycin, Flagyl and levofloxacin. Flagyl added given concern for aspiration in altered patient. Patient is allergic to penicillins and cephalosporins. If cultures remain negative, will decrease and narrowed to levofloxacin. CHF- CXR findings could also be pulmonary edema from missed HD. Sepsis- lactic acid normal, pt bp stable DM- Glucose well controlled on BMP, will monitor glucose levels and use SSI HTN- holding BP meds given hypotension at presentation. Intermittently soft blood pressures after diltiazem use. Will continue to stop fosinopril, adding diltiazem for atrial fibrillation. Atrial fibrillation. Intermittent. Status post 24-hour amiodarone load. We will add standing every 6 hours diltiazem and monitor Morbid Obesity/ FORREST- CPAP at night HLD- resume meds once able Psych disorder/ PTSD/ Anxiety- hold meds for now, let patient wake up before initiating same. COPD- on 2 L oxygen, no wheezing on exam DuoNeb q6hrs Abnormal liver ultrasoundpatient getting dialysis today, unable to obtain MRI of the liver. If discharged over the weekend, will defer to outpatient workup. DVT Hep sq Diet renal, consistent carbohydrate Full code. Medical - PN: Qual - VTE Deep Vein Thrombosis/Pulmonary Embolism Present on Admission: No
[2018-02-17] MEDS: ATORVASTATIN 20 MG TABLET PO SCH (20:21)
[2018-02-17] MEDS: rOPINIRole 0.25 MG TABLET PO PRN (20:21)
[2018-02-17] MEDS: GABAPENTIN 300 MG CAPSULE PO SCH (20:21)
[2018-02-18] MEDS: 0.9 % SODIUM CHLORIDE 250 ML IV SCH (00:09)
[2018-02-18] MEDS: DILTIAZEM 30 MG TABLET PO SCH ×5 (00:11→21:35)
[2018-02-18] MEDS: IPRATROPIUM/ALBUTEROL 3 ML AMPUL.NEB NEB SCH ×4 (00:59→19:00)
[2018-02-18] MEDS: metroNIDAZOLE 500 MG/100 ML BAG IV SCH (05:37)
[2018-02-18] MEDS: 0.9 % SODIUM CHLORIDE 10 ML SYRINGE IV SCH ×3 (05:37→21:32)
[2018-02-18 06:16] LABS: Basophils # (Auto) 0 K/mcL (0.0-0.3); Basophils % (Auto) 0.2 % (0.0-2.0); Eosinophils # (Auto) 0.1 K/mcL (0.0-0.7); Eosinophils % (Auto) 1.5 % (0.0-7.0); Granulocytes % (Auto) 68.8 % (38.0-78.0); Lymphocytes # (Auto) 1.4 K/mcL (1.5-4.8); Lymphocytes % (Auto) 18.7 % (15.5-49.0); Mean Cell Volume 96.7 fL (80.0-100.0); Mean Corpuscular HGB Conc 34.1 g/dL (31.0-36.0); Monocytes # (Auto) 0.8 K/mcL (0.1-0.9); Monocytes % (Auto) 10.8 % (1.0-12.0); Platelet Count 163 K/mcL (140-440); RBC 4.09 M/mcL (4.00-5.20); Red Cell Distribution Width 14.7 % (11.5-14.5)
[2018-02-18 06:49] LABS: ALT/SGPT 22 U/l (0-40); Albumin 3.1 gm/dL (3.2-5.2); Albumin/Globulin Ratio 0.9 (1.0-2.3); Alkaline Phosphatase 359 U/L (39-117); Bilirubin,Direct < 0.2 mg/dL (0.0-0.3); Blood Urea Nitrogen 22 mg/dl (6-20); Gamma Glutamyl Transpeptidase 166 U/L (5-36); Uric Acid 2.7 mg/dL (2.5-8.0)
[2018-02-18] MEDS: AZTREONAM 1 GM VIAL IV SCH (07:38)
[2018-02-18] MEDS: PANTOPRAZOLE 40 MG TABLET PO SCH (07:39)
[2018-02-18] MEDS: CLOPIDOGREL 75 MG TABLET PO SCH (07:39)
[2018-02-18] MEDS: HEPARIN 5,000 UNIT/ML VIAL SQ SCH ×2 (07:39→21:12)
[2018-02-18] MEDS: OMEPRAZOLE 20 MG CAPSULE PO SCH (07:39)
[2018-02-18] MEDS: SEVELAMER 800 MG TABLET PO SCH ×3 (07:39→17:15)
[2018-02-18] MEDS: INSULIN LISPRO 1 UNIT/0.01 ML UNIT SQ SCH ×4 (07:43→21:08)
[2018-02-18] MEDS: ESCITALOPRAM 20 MG TABLET PO SCH (07:49)
[2018-02-18] MEDS: lamoTRIgine 100 MG TABLET PO SCH ×2 (07:49→21:32)
[2018-02-18] MEDS ORDERED: DEXTROSE 50% 50 ML VIAL IV PRN (10:25)
[2018-02-18] MEDS ORDERED: NALOXONE HCL 0.4 MG/ML VIAL IV PRN (10:25)
[2018-02-18] MEDS ORDERED: VANCOMYCIN PER PHARMACY IV SCH (10:25)
[2018-02-18] MEDS ORDERED: DEXTROSE 31 GM ORAL.SUSP PO PRN (10:25)
[2018-02-18] MEDS ORDERED: DILTIAZEM 25 MG/5 ML VIAL IV PRN (10:25)
[2018-02-18] MEDS ORDERED: MAGNESIUM HYDROXIDE 30 ML ORAL.SUSP PO PRN (10:25)
[2018-02-18] MEDS ORDERED: ACETAMINOPHEN 325 MG TABLET PO PRN (10:25)
[2018-02-18] MEDS ORDERED: SENNOSIDES 1 TABLET PO PRN (10:25)
[2018-02-18] MEDS ORDERED: ONDANSETRON 4 MG/2 ML VIAL IV PRN (10:25)
[2018-02-18] MEDS ORDERED: metroNIDAZOLE 500 MG/100 ML BAG IV SCH ×2 (12:45→14:00)
--- NOTE | 2018-02-18 12:54 | Internal Med Progress Note ---
Medical - PN: Subj Patient information: Note initiated : 02/18/18 at 12:52 pm Service Date, if different from initiated Date: [] Patient: Teressa Goodman a 52 y/o F admitted on 02/15/18 for Hypocalcemia and CHS. Chief Complaint: Follow-up encephalopathy, renal failure, pneumonia Interval history: 02/15 Ms. Goodman is a 52 year old F with history of diabetes on dialysis. Patient is followed by Dr. Mckinney. Patient gets dialyzed by Tuesday and Tuesday. The patient presented to [facility] ER today for altered mental status. According to the provider in the emergency room the patient has not had dialysis on Tuesday and again missed her dialysis on Tuesday today. The patient was quite drowsy and unable to provide a meaningful history. Patient did wake up on verbal commands as well as light touch however did not answer any meaningful questions. The patient workup was done at [facility] and it was noted that the patient has elevated BUN and creatinine. Patient needed dialysis on an urgent basis. Patient had elevated potassium. Dr. 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 [facility] did not have dialysis after 5 PM and the patient was therefore transferred to [facility] for further management. [facility] patient was drowsy did not answer any questions. Patient was afebrile, heart rate normal, blood pressure soft systolic ranging between 90-110 and diastolic between 50-60. Respiratory rate around 10 -12 Patient blood work at outside hospital shows leukocytosis with WBC count of 13.3 , hemoglobin of 15, lakelets 183. #9 gap 21 calcium 9.9 sodium 133 potassium 6.8 chloride 88 bicarbonate 24 BUN 105 creatinine 9.1 glucose was 89 urinalysis showed proteinuria 100, no signs of infection. Alkaline phosphatase elevated at 46 previously was 149 AST 51 previously 15 and ALT 32 previously 8. Patient had an ultrasound of the abdomen done in the past which showed that she is status post cholecystectomy. The patient was admitted to PCU for further management. 02/16 Pt seen examined, by the bed side, pt quite drowsy, but woke up with verbal commands, non coherent answers, patient was still having pin point pupils and was quite drowsy despite HD last night. The patient received 0.4mg of narcan with good response and she woke up. Last night she had run of AFib with RVR not responding to metoprolol 5mg x 3, given labile blood pressure, amiodarone was initiated, pt hr is now back to sinus. 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 The patient remains on antibiotics for Pneumonia, hcap/ aspiration pna cultures neg so far Nephrology following, electrolytes stable, no need for HD today, anticipate tomorrow LFT abnormal, USG liver done, noted a liver mass, needs MRI for further evaluation, will be considered by oncoming provider. 02/17 Tolerated hemodialysis today. Remains awake, still groggy. Remained in NSR yesterday until end of amiodarone infusion shortly after midnight, then went back into A. fib. Eventually converted back to sinus rhythm after one IV dose of diltiazem. Went back into A. fib towards end of dialysis, again converted after 1 dose of IV diltiazem. Nephrology is recommended decreasing gabapentin 100 mg daily and stopping lisinopril at time of discharge. 02/18 Continues to improve, feels better today. Appetite is improved. Has not complained of pain in general to the nursing staff. Had been on high-dose pain medications previously. This continued to be held. Intermittently goes into A. fib with RVR, appears to becoming less common currently. Pertinent ROS: No fever, chills, dyspnea. Appetite good. Complains of constipation which is a chronic problem, Linzess is now been resumed - Constitutional Vitals: Vital Signs Temp Pulse Resp BP Pulse Ox 98.7 F 75 16 135/104 95 02/18/18 11:06 02/18/18 07:24 02/18/18 11:06 02/18/18 11:06 02/18/18 11:06 Period Temp Pulse Resp BP Sys/Hunter Pulse Ox Last 24 Hr 98.3 F-98.7 F 59-172 8-40 80-161/46-104 88-98 Intake and Output 02/17/18 02/18/18 02/18/18 21:59 05:59 13:59 Intake Total 1240 / 1240 300 / 300 320 / 320 Output Total 1200 / 1200 50 / 50 150 / 150 Balance 40 / 40 250 / 250 170 / 170 Weight 226 lb Intake & Output: Intake & Output 02/17/18 02/18/18 02/18/18 21:59 05:59 13:59 Intake Total 1240 / 1240 300 / 300 320 / 320 Output Total 1200 / 1200 50 / 50 150 / 150 Balance 40 / 40 250 / 250 170 / 170 Weight 226 lb Intake: IV 600 / 600 100 / 100 100 / 100 Oral 640 / 640 200 / 200 220 / 220 Output: Void Amount 50 / 50 150 / 150 Hemodialysis UF 1200 / 1200 Other: Meal Dinner Breakfast Percent of Meal Consumed 75% 100% Feeding Ability Independent Stool Size Large Stool Color Brown Stool Consistency Dry and Hard Formed Loose # Voids 1 # Bowel Movements 1 Exam: General: No acute distress, sitting up in chair Chest: Clear, no wheezes, no rhonchi Cardiovascular: Regular my exam, bit distant, 1/6 systolic murmur at the upper right sternal border Abdomen: Obese, soft, no tenderness Neuro: Alert, oriented to person place and situation, generalized weakness. Extremities: No cyanosis, no edema Medical - PN: Obj Da - Labs CBC & Chem 7: 02/18/18 04:27 02/18/18 04:27 Labs: Abnormal Lab Results 02/18/18 02/18/18 02/17/18 04:27 04:27 04:28 WBC RDW 14.7 H MPV Gran % Lymph % (Auto) Gran # Lymph # (Auto) 1.4 L Chloride 93 L 92 L Anion Gap 18.0 H BUN 22 H 51 H Creatinine 3.8 H 6.4 H* Glucose Phosphorus 4.9 H Magnesium 2.6 H Direct Bilirubin GGT 166 H 187 H AST Alkaline Phosphatase 359 H 452 H Lactate Dehydrogenase Albumin 3.1 L 2.9 L Albumin/Globulin Ratio 0.9 L 0.9 L Ur Oxycodone Screen U Benzodiazepines Scrn 02/17/18 02/16/18 02/16/18 04:28 04:08 04:08 WBC 16.5 H RDW 14.7 H MPV 10.7 H Gran % 90.4 H Lymph % (Auto) 4.4 L Gran # 14.9 H Lymph # (Auto) 0.7 L Chloride 93 L Anion Gap BUN 36 H Creatinine 4.8 H Glucose 110 H Phosphorus Magnesium Direct Bilirubin 0.4 H GGT 202 H AST 42 H Alkaline Phosphatase 490 H Lactate Dehydrogenase 274 H Albumin 3.1 L Albumin/Globulin Ratio 0.9 L Ur Oxycodone Screen U Benzodiazepines Scrn 02/16/18 02:14 WBC RDW MPV Gran % Lymph % (Auto) Gran # Lymph # (Auto) Chloride Anion Gap BUN Creatinine Glucose Phosphorus Magnesium Direct Bilirubin GGT AST Alkaline Phosphatase Lactate Dehydrogenase Albumin Albumin/Globulin Ratio Ur Oxycodone Screen Suspect positive A U Benzodiazepines Scrn Suspect positive A Meds: Medications Acetaminophen (Tylenol) 650 mg PO Q4-6HP PRN PRN Reason: PAIN/FEVER > 101 Albuterol/Ipratropium (Duoneb) 3 ml NEB Q6HRT [facility] Atorvastatin Calcium (Lipitor) 20 mg PO HS [facility] Aztreonam (Azactam) 0.5 gm IV Q12H [facility] Clopidogrel Bisulfate (Plavix) 75 mg PO DAILY [facility] Dextrose (Dextrose 50%) 0 ml IV UD PRN PRN Reason: Hypoglycemia Diagnostic Test (Pha) (Accu-Chek) 1 each FS ACHS [facility] Last Admin: 02/18/18 12:16 Dose: 1 each Diltiazem HCl (Cardizem) 10 mg IV Q4HP PRN PRN Reason: Heart Rate- High Diltiazem HCl (Cardizem) 30 mg PO Q6H [facility] Last Admin: 02/18/18 12:33 Dose: 30 mg Escitalopram Oxalate (Lexapro) 20 mg PO DAILY [facility] Gabapentin (Neurontin) 300 mg PO HS [facility] Glucose (Insta-Glucose) 15 gm PO PRN PRN PRN Reason: Hypoglycemia Heparin Sodium (Porcine) (Heparin) 5,000 unit SQ Q12 [facility] Levofloxacin (Levaquin) 500 mg in 100 mls @ 100 mls/hr IV Q48H [facility] Metronidazole (Flagyl) 500 mg in 100 mls @ 100 mls/hr IV Q8H [facility] Insulin Human Lispro (Humalog) 0 unit SQ ACHS [facility]; Protocol Last Admin: 02/18/18 12:20 Dose: Not Given Lamotrigine (Lamictal) 50 mg PO BID [facility] Magnesium Hydroxide (Milk Of Magnesia) 30 ml PO DAILYP PRN PRN Reason: Constipation Naloxone HCl (Narcan) 0.1 mg IV Q2MIN PRN PRN Reason: Opiate Reversal Fluphenazine Hcl 5 (Mg Tab) 5 mg PO QHS [facility] Omeprazole (Prilosec) 20 mg PO QAMAC [facility] Ondansetron HCl (Zofran) 4 mg IV Q4-6HP PRN PRN Reason: Nausea And Vomiting Pantoprazole Sodium (Protonix) 40 mg PO QAMAC [facility] Linaclotide (Linzess () 145 Mcg Cap) 1 dose PO DAILY [facility] Ropinirole HCl (Requip) 0.5 mg PO HSP PRN PRN Reason: RESTLESS LEGS Senna (Senokot) 2 tab PO HSP PRN PRN Reason: Constipation Sevelamer Carbonate (Renvela) 3,200 mg PO TIDCC [facility] Last Admin: 02/18/18 12:33 Dose: 3,200 mg Sodium Chloride (Saline Flush) 10 ml IV Q8 [facility] Last Admin: 02/18/18 12:32 Dose: 10 ml Vancomycin HCl (Vancomycin Per Pharmacy) 1 order IV UD [facility] Medical - PN: A/P - Time Spent With Patient Total time spent is greater than 50% in coordination of care (as documented) at patient's floor/unit and/or counseling patient: Greater than 35 minutes - Narrative A/P Narrative: Altered mental status/ Metabolic encephalopathy/ vs Septic Encephalopathy. Mental status improved from Narcan on 02/16, remains a little groggy 02/17; close to baseline 02/18; suspect combination pain medications and pneumonia. Plan: Monitor, change from PCU to tele status. HCAP PNA- Cultures NGTD. On iv aztreonam, vancomycin, Flagyl and levofloxacin. Flagyl added given concern for aspiration in altered patient. Patient is allergic to penicillins and cephalosporins. Plan: Narrow abx to levofloxacin and Flagyl. Atrial fibrillation. Intermittent. Status post 24-hour amiodarone load. Added standing Q6 hours diltiazem 02/17 Plan: Continue scheduled diltiazem, telemetry monitoring. CHF- CXR findings could also be pulmonary edema from missed HD. Sepsis- lactic acid normal, pt bp stable DM- Glucose well controlled on BMP, will monitor glucose levels and use SSI HTN- holding BP meds given hypotension at presentation. Intermittently soft blood pressures after diltiazem use. Will continue to stop fosinopril, adding diltiazem for atrial fibrillation. Morbid Obesity/ FORREST- CPAP at night HLD- resumed meds Psych disorder/ PTSD/ Anxiety- held meds now resumed. COPD- on 2 L oxygen, no wheezing on exam DuoNeb q6hrs Abnormal liver ultrasoundpatient getting dialysis today, unable to obtain MRI of the liver. If discharged over the weekend, will defer to outpatient workup. DVT Hep sq Diet renal, consistent carbohydrate Full code. Medical - PN: Qual - VTE Deep Vein Thrombosis/Pulmonary Embolism Present on Admission: No
[2018-02-18] MEDS: metroNIDAZOLE 500 MG TABLET PO SCH ×2 (15:03→21:13)
[2018-02-18] MEDS ORDERED: AZTREONAM 1 GM VIAL IV SCH (21:00)
[2018-02-18] MEDS: GABAPENTIN 300 MG CAPSULE PO SCH (21:12)
[2018-02-18] MEDS: ATORVASTATIN 20 MG TABLET PO SCH (21:32)
[2018-02-18] MEDS: rOPINIRole 0.25 MG TABLET PO PRN (21:40)
[2018-02-19] MEDS: DILTIAZEM 30 MG TABLET PO SCH ×7 (00:08→23:59)
[2018-02-19] MEDS: IPRATROPIUM/ALBUTEROL 3 ML AMPUL.NEB NEB SCH ×4 (00:08→19:40)
[2018-02-19] MEDS: 0.9 % SODIUM CHLORIDE 10 ML SYRINGE IV SCH ×3 (05:25→21:38)
[2018-02-19] MEDS: metroNIDAZOLE 500 MG TABLET PO SCH ×3 (05:25→21:14)
[2018-02-19 06:09] LABS: Basophils # (Auto) 0 K/mcL (0.0-0.3); Basophils % (Auto) 0.3 % (0.0-2.0); Eosinophils # (Auto) 0.2 K/mcL (0.0-0.7); Eosinophils % (Auto) 2.3 % (0.0-7.0); Lymphocytes # (Auto) 1.6 K/mcL (1.5-4.8); Lymphocytes % (Auto) 21.4 % (15.5-49.0); Mean Cell Volume 97.2 fL (80.0-100.0); Mean Corpuscular HGB Conc 33.6 g/dL (31.0-36.0); Mean Corpuscular Hemoglobin 32.6 pg (26.0-34.0); Monocytes # (Auto) 0.9 K/mcL (0.1-0.9); Platelet Count 155 K/mcL (140-440); RBC 3.94 M/mcL (4.00-5.20); Red Cell Distribution Width 14.8 % (11.5-14.5)
[2018-02-19 06:36] LABS: ALT/SGPT 21 U/l (0-40); Albumin 2.9 gm/dL (3.2-5.2); Alkaline Phosphatase 303 U/L (39-117); Bilirubin,Direct 0.2 mg/dL (0.0-0.3); Blood Urea Nitrogen 34 mg/dl (6-20); Gamma Glutamyl Transpeptidase 151 U/L (5-36)
[2018-02-19] MEDS: INSULIN LISPRO 1 UNIT/0.01 ML UNIT SQ SCH ×4 (07:53→21:15)
[2018-02-19] MEDS ORDERED: LEVOFLOXACIN 500 MG/100 ML BAG IV SCH (09:00)
[2018-02-19] MEDS: PANTOPRAZOLE 40 MG TABLET PO SCH (09:22)
[2018-02-19] MEDS: SEVELAMER 800 MG TABLET PO SCH ×3 (09:22→16:42)
[2018-02-19] MEDS: OMEPRAZOLE 20 MG CAPSULE PO SCH (09:22)
[2018-02-19] MEDS: HEPARIN 5,000 UNIT/ML VIAL SQ SCH ×2 (09:22→21:15)
[2018-02-19] MEDS: CLOPIDOGREL 75 MG TABLET PO SCH (09:22)
[2018-02-19] MEDS: ESCITALOPRAM 20 MG TABLET PO SCH (09:28)
[2018-02-19] MEDS: lamoTRIgine 100 MG TABLET PO SCH ×2 (09:28→21:20)
--- NOTE | 2018-02-19 14:32 | Internal Med Progress Note ---
Medical - PN: Subj Patient information: Note initiated : 02/19/18 at 2:30 pm Service Date, if different from initiated Date: [] Patient: Teressa Goodman a 52 y/o F admitted on 02/15/18 for Hypocalcemia and CHS. Chief Complaint: Follow-up encephalopathy, atrial fibrillation, pneumonia Interval history: 02/15 Ms. Goodman is a 52 year old F with history of diabetes on dialysis. Patient is followed by Dr. Mckinney. Patient gets dialyzed by Tuesday and Tuesday. The patient presented to [facility] ER today for altered mental status. According to the provider in the emergency room the patient has not had dialysis on Tuesday and again missed her dialysis on Tuesday today. The patient was quite drowsy and unable to provide a meaningful history. Patient did wake up on verbal commands as well as light touch however did not answer any meaningful questions. The patient workup was done at [facility] and it was noted that the patient has elevated BUN and creatinine. Patient needed dialysis on an urgent basis. Patient had elevated potassium. Dr. 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 [facility] did not have dialysis after 5 PM and the patient was therefore transferred to [facility] for further management. On my evaluation in the hospital at [facility] the patient was drowsy did not answer any questions. Patient was afebrile, heart rate normal, blood pressure soft systolic ranging between 90-110 and diastolic between 50-60. Respiratory rate around 10 -12 Patient blood work at outside hospital shows leukocytosis with WBC count of 13.3 , hemoglobin of 15, lakelets 183. #9 gap 21 calcium 9.9 sodium 133 potassium 6.8 chloride 88 bicarbonate 24 BUN 105 creatinine 9.1 glucose was 89 urinalysis showed proteinuria 100, no signs of infection. Alkaline phosphatase elevated at 46 previously was 149 AST 51 previously 15 and ALT 32 previously 8. Patient had an ultrasound of the abdomen done in the past which showed that she is status post cholecystectomy. The patient was admitted to PCU for further management. 02/16 Pt seen examined, by the bed side, pt quite drowsy, but woke up with verbal commands, non coherent answers, patient was still having pin point pupils and was quite drowsy despite HD last night. The patient received 0.4mg of narcan with good response and she woke up. Last night she had run of AFib with RVR not responding to metoprolol 5mg x 3, given labile blood pressure, amiodarone was initiated, pt hr is now back to sinus. 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 The patient remains on antibiotics for Pneumonia, hcap/ aspiration pna cultures neg so far Nephrology following, electrolytes stable, no need for HD today, anticipate tomorrow LFT abnormal, USG liver done, noted a liver mass, needs MRI for further evaluation, will be considered by oncoming provider. 02/17 Tolerated hemodialysis today. Remains awake, still groggy. Remained in NSR yesterday until end of amiodarone infusion shortly after midnight, then went back into A. fib. Eventually converted back to sinus rhythm after one IV dose of diltiazem. Went back into A. fib towards end of dialysis, again converted after 1 dose of IV diltiazem. Nephrology is recommended decreasing gabapentin 100 mg daily and stopping lisinopril at time of discharge. 02/18 Continues to improve, feels better today. Appetite is improved. Has not complained of pain in general to the nursing staff. Had been on high-dose pain medications previously. This continued to be held. Intermittently goes into A. fib with RVR, appears to becoming less common currently. 02/19 No specific complaints today, improved. In general, has not asked for pain medications. Still has intermittent bouts of atrial fibrillation with rapid ventricular response, though rate control is a bit improved during these episodes with oral diltiazem. Usually spontaneous cardioverted, though sometimes cardioverts after IV diltiazem. She does not recognize the diagnosis of atrial fibrillation, though wonder if she has had unrecognized paroxysmal atrial fibrillation for a while. Otherwise doing well, but cannot safely discharge without control of arrhythmia. Pertinent ROS: No fevers, no chills, no dyspnea, no nausea or vomiting. Appetite is good - Constitutional Vitals: Vital Signs Temp Pulse Resp BP Pulse Ox 98.4 F 72 18 105/59 98 02/19/18 11:31 02/19/18 13:05 02/19/18 13:05 02/19/18 11:31 02/19/18 11:31 Period Temp Pulse Resp BP Sys/Hunter Pulse Ox Last 24 Hr 97.8 F-98.6 F 72-125 16-18 105-130/57-78 97-99 Intake and Output 02/19/18 02/19/18 02/19/18 05:59 13:59 21:59 Intake Total 580 / 580 Output Total 150 / 150 Balance -150 / -150 580 / 580 Intake & Output: Intake & Output 02/19/18 02/19/18 02/19/18 05:59 13:59 21:59 Intake Total 580 / 580 Output Total 150 / 150 Balance -150 / -150 580 / 580 Intake: IV 100 / 100 Oral 480 / 480 Output: Void Amount 150 / 150 Other: Meal Lunch Percent of Meal Consumed 100% Feeding Ability Independent Stool Size Large Stool Color Brown Stool Consistency Loose Exam: General: Laying in bed in no acute distress Chest: Clear, unlabored Cardiovascular: Regular at time of my exam. No peripheral edema Extremities: Left upper extremity fistula with thrill and bruit Neuro: Alert, oriented 3, moves all extremities equally Medical - PN: Obj Da - Labs CBC & Chem 7: 02/19/18 04:08 02/19/18 04:08 Labs: Abnormal Lab Results 02/19/18 02/19/18 02/18/18 04:08 04:08 04:27 RBC 3.94 L RDW 14.8 H Lymph # (Auto) Sodium 130 L Chloride 91 L 93 L Anion Gap BUN 34 H 22 H Creatinine 5.1 H* 3.8 H Phosphorus Magnesium GGT 151 H 166 H Alkaline Phosphatase 303 H 359 H Albumin 2.9 L 3.1 L Albumin/Globulin Ratio 0.9 L 02/18/18 02/17/18 02/17/18 04:27 04:28 04:28 RBC RDW 14.7 H 14.7 H Lymph # (Auto) 1.4 L Sodium Chloride 92 L Anion Gap 18.0 H BUN 51 H Creatinine 6.4 H* Phosphorus 4.9 H Magnesium 2.6 H GGT 187 H Alkaline Phosphatase 452 H Albumin 2.9 L Albumin/Globulin Ratio 0.9 L Microbiology 02/15/18 20:42 Blood Culture - Preliminary Blood 02/15/18 20:54 Blood Culture - Preliminary Blood Meds: Medications Acetaminophen (Tylenol) 650 mg PO Q4-6HP PRN PRN Reason: PAIN/FEVER > 101 Albuterol/Ipratropium (Duoneb) 3 ml NEB Q6HRT [facility] Last Admin: 02/19/18 13:06 Dose: 3 ml Atorvastatin Calcium (Lipitor) 20 mg PO HS [facility] Last Admin: 02/18/18 21:32 Dose: 20 mg Clopidogrel Bisulfate (Plavix) 75 mg PO DAILY [facility] Last Admin: 02/19/18 09:22 Dose: 75 mg Dextrose (Dextrose 50%) 0 ml IV UD PRN PRN Reason: Hypoglycemia Diagnostic Test (Pha) (Accu-Chek) 1 each FS ACHS [facility] Last Admin: 02/19/18 11:36 Dose: 1 each Diltiazem HCl (Cardizem) 10 mg IV Q4HP PRN PRN Reason: Heart Rate- High Last Admin: 02/19/18 08:45 Dose: 10 mg Diltiazem HCl (Cardizem) 60 mg PO Q6 [facility] Last Admin: 02/19/18 11:46 Dose: 60 mg Escitalopram Oxalate (Lexapro) 20 mg PO DAILY [facility] Last Admin: 02/19/18 09:28 Dose: 20 mg Gabapentin (Neurontin) 300 mg PO HS [facility] Last Admin: 02/18/18 21:12 Dose: 300 mg Glucose (Insta-Glucose) 15 gm PO PRN PRN PRN Reason: Hypoglycemia Heparin Sodium (Porcine) (Heparin) 5,000 unit SQ Q12 [facility] Last Admin: 02/19/18 09:22 Dose: 5,000 unit Levofloxacin (Levaquin) 500 mg in 100 mls @ 100 mls/hr IV Q48H [facility] Last Infusion: 02/19/18 10:30 Dose: Infused Insulin Human Lispro (Humalog) 0 unit SQ [facility]; Protocol Last Admin: 02/19/18 11:44 Dose: Not Given Lamotrigine (Lamictal) 50 mg PO BID [facility] Last Admin: 02/19/18 09:28 Dose: 50 mg Magnesium Hydroxide (Milk Of Magnesia) 30 ml PO DAILYP PRN PRN Reason: Constipation Metronidazole (Flagyl) 500 mg PO Q8 [facility] Last Admin: 02/19/18 14:28 Dose: 500 mg Naloxone HCl (Narcan) 0.1 mg IV Q2MIN PRN PRN Reason: Opiate Reversal Fluphenazine Hcl 5 (Mg Tab) 5 mg PO QHS [facility] Last Admin: 02/18/18 21:12 Dose: 5 mg Omeprazole (Prilosec) 20 mg PO QAMAC [facility] Last Admin: 02/19/18 09:22 Dose: 20 mg Ondansetron HCl (Zofran) 4 mg IV Q4-6HP PRN PRN Reason: Nausea And Vomiting Pantoprazole Sodium (Protonix) 40 mg PO QAMAC [facility] Last Admin: 02/19/18 09:22 Dose: 40 mg Linaclotide (Linzess () 145 Mcg Cap) 1 dose PO DAILY [facility] Last Admin: 02/19/18 09:24 Dose: Not Given Ropinirole HCl (Requip) 0.5 mg PO HSP PRN PRN Reason: RESTLESS LEGS Last Admin: 02/18/18 21:40 Dose: 0.5 mg Senna (Senokot) 2 tab PO HSP PRN PRN Reason: Constipation Sevelamer Carbonate (Renvela) 3,200 mg PO TIDCC [facility] Last Admin: 02/19/18 11:46 Dose: 3,200 mg Sodium Chloride (Saline Flush) 10 ml IV Q8 [facility] Last Admin: 02/19/18 12:29 Dose: 10 ml Medical - PN: A/P - Narrative A/P Narrative: Atrial fibrillation. Intermittent. Persist with bouts of AF/RVR, has had 24- hour amiodarone load. Added standing Q6 hours diltiazem 02/17, dose increased 02/18. Uncontrolled RVR is limiting her discharge Plan: Increase diltiazem to 60 mg every 6 hours, when necessary IV diltiazem, continue telemetry monitoring. Altered mental status/ Metabolic encephalopathy/ vs Septic Encephalopathy. Mental status improved from Narcan on 02/16, remains a little groggy 02/17; close to baseline 02/18; suspect combination pain medications and pneumonia. Plan: Monitor. HCAP PNA- Cultures NGTD. On iv aztreonam, vancomycin, Flagyl and levofloxacin. Flagyl added given concern for aspiration in altered patient. Patient is allergic to penicillins and cephalosporins. Plan: Antibiotics narrowed to levofloxacin and metronidazole on 02/18. Day 5 antibiotics. End-stage renal disease. Unlikely to be discharged for tomorrow, will require dialysis as an inpatient. CHF- CXR findings could also be pulmonary edema from missed HD. Sepsis- lactic acid normal, pt bp stable DM- Glucose well controlled on BMP, will monitor glucose levels and use SSI HTN- holding BP meds given hypotension at presentation. Intermittently soft blood pressures after diltiazem use. Will continue to stop fosinopril, adding diltiazem for atrial fibrillation. Morbid Obesity/ FORREST- CPAP at night HLD- resumed meds Psych disorder/ PTSD/ Anxiety- held meds now resumed. COPD- on 2 L oxygen, no wheezing on exam DuoNeb q6hrs Abnormal liver ultrasoundpatient getting dialysis Tuesday, unable to obtain MRI of the liver. DVT Hep sq Diet renal, consistent carbohydrate Full code. Medical - PN: Qual - VTE Deep Vein Thrombosis/Pulmonary Embolism Present on Admission: No
[2018-02-19] MEDS: GABAPENTIN 300 MG CAPSULE PO SCH (21:14)
[2018-02-19] MEDS: rOPINIRole 0.25 MG TABLET PO PRN (21:19)
[2018-02-19] MEDS: ATORVASTATIN 20 MG TABLET PO SCH (21:20)
[2018-02-19] MEDS: NICOTINE 14 MG PATCH TOPICAL SCH (21:37)
[2018-02-20] MEDS: IPRATROPIUM/ALBUTEROL 3 ML AMPUL.NEB NEB SCH ×4 (02:13→13:25)
[2018-02-20 05:13] LABS: Basophils # (Auto) 0 K/mcL (0.0-0.3); Basophils % (Auto) 0.3 % (0.0-2.0); Eosinophils # (Auto) 0.3 K/mcL (0.0-0.7); Eosinophils % (Auto) 3.9 % (0.0-7.0); Granulocytes % (Auto) 62.5 % (38.0-78.0); Lymphocytes # (Auto) 1.8 K/mcL (1.5-4.8); Lymphocytes % (Auto) 23.1 % (15.5-49.0); Mean Cell Volume 97.8 fL (80.0-100.0); Mean Corpuscular HGB Conc 33.5 g/dL (31.0-36.0); Mean Corpuscular Hemoglobin 32.8 pg (26.0-34.0); Monocytes # (Auto) 0.8 K/mcL (0.1-0.9); Monocytes % (Auto) 10.2 % (1.0-12.0); Platelet Count 161 K/mcL (140-440); Red Cell Distribution Width 14.7 % (11.5-14.5)
[2018-02-20 05:45] LABS: ALT/SGPT 25 U/l (0-40); Albumin 2.9 gm/dL (3.2-5.2); Alkaline Phosphatase 297 U/L (39-117); Bilirubin,Direct < 0.2 mg/dL (0.0-0.3); Blood Urea Nitrogen 45 mg/dl (6-20); Gamma Glutamyl Transpeptidase 157 U/L (5-36); Uric Acid 4.7 mg/dL (2.5-8.0)
[2018-02-20] MEDS: 0.9 % SODIUM CHLORIDE 10 ML SYRINGE IV SCH ×2 (05:51→12:47)
[2018-02-20] MEDS: metroNIDAZOLE 500 MG TABLET PO SCH ×2 (05:53→17:45)
[2018-02-20] MEDS: DILTIAZEM 30 MG TABLET PO SCH ×3 (05:53→17:46)
[2018-02-20] MEDS: INSULIN LISPRO 1 UNIT/0.01 ML UNIT SQ SCH ×3 (06:32→17:44)
[2018-02-20] MEDS: PANTOPRAZOLE 40 MG TABLET PO SCH (07:58)
[2018-02-20] MEDS: OMEPRAZOLE 20 MG CAPSULE PO SCH (07:58)
[2018-02-20] MEDS: HEPARIN 5,000 UNIT/ML VIAL SQ SCH (08:38)
[2018-02-20] MEDS: SEVELAMER 800 MG TABLET PO SCH ×3 (08:38→17:44)
[2018-02-20] MEDS: lamoTRIgine 100 MG TABLET PO SCH (08:38)
[2018-02-20] MEDS: CLOPIDOGREL 75 MG TABLET PO SCH (08:38)
[2018-02-20] MEDS: ESCITALOPRAM 20 MG TABLET PO SCH (08:38)
[2018-02-20 08:40] LABS: Legionella pneumophilia Ag, Ur NOT DETECTED
[2018-02-20] MEDS: NICOTINE 14 MG PATCH TOPICAL SCH (08:50)
[2018-02-20] MEDS ORDERED: FUROSEMIDE 80 MG TABLET PO SCH (09:00)
--- NOTE | 2018-02-20 14:53 | Nephrology Progress Note ---
Subjective Patient information: Note initiated : 02/20/18 at 2:44 pm Service Date, if different from initiated Date: [] Patient: Teressa Goodman 52 y/o F admitted on 02/15/18 for Hypocalcemia and CHS. Chief Complaint: [] Principal diagnosis: AMS Interval history: patient seen this am she has had episodes of intermittent afib over the weekend, now on po diltiazem for this other than that she has done fine she denies SOB, CP no edema no pain issues and has not asked for pain meds eating well she states she has had work up for liver issues at [facility] and [facility] and requested staff to obtain those records Pertinent ROS: as above Objective - Vital Signs Vital signs: Vital Signs Temp Pulse Pulse Resp BP Pulse Ox 02/20/18 14:25 58 L 137/54 02/20/18 14:10 58 L 140/53 02/20/18 13:55 60 149/59 02/20/18 13:40 64 158/61 02/20/18 13:25 98.6 F 69 18 147/56 02/20/18 12:41 98.4 F 18 119/77 95 02/20/18 08:00 70 16 96 02/20/18 07:46 98.0 F 16 121/74 96 02/20/18 07:31 64 16 02/20/18 04:05 97.4 F 22 122/67 99 02/20/18 00:07 111/67 02/19/18 21:40 98.5 F 18 95 02/19/18 20:00 96 02/19/18 19:40 62 18 93 02/19/18 15:54 97.4 F 17 118/65 97 Intake and Output 02/20/18 02/20/18 02/20/18 05:59 13:59 21:59 Intake Total 720 / 720 Output Total 150 / 150 Balance -150 / -150 720 / 720 Intake: Oral 720 / 720 Output: Void Amount 150 / 150 Other: Meal Lunch Percent of Meal Consumed 100% Feeding Ability Independent Weight 234 lb 1.28 oz Patient Weight 02/21/18 05:59 Weight 234 lb 1.28 oz Intake & Output: Intake & Output 02/20/18 02/20/18 02/20/18 05:59 13:59 21:59 Intake Total 720 / 720 Output Total 150 / 150 Balance -150 / -150 720 / 720 Weight 234 lb 1.28 oz Intake: Oral 720 / 720 Output: Void Amount 150 / 150 Other: Meal Lunch Percent of Meal Consumed 100% Feeding Ability Independent - General Appearance General appearance: appears started age, obese EENT: mucous membranes moist Neck: no JVD Respiratory: rales Cardiology: no rub, regular rate, regular rhythm Gastrointestinal: no tenderness, no guarding Integumentary: warm and dry Neurologic: alert and oriented x3 Musculoskeletal: no erythema, no cyanosis Psychiatric: mood/affect appropriate - Lab 02/20/18 04:03 02/20/18 04:03 Most recent lab results Calcium 9.2 mg/dl (8.6-10.4) 02/20/18 04:03 Phosphorus 3.5 mg/dL (2.7-4.5) 02/20/18 04:03 Magnesium 2.2 mg/dL (1.6-2.5) 02/20/18 04:03 Assessment and Plan (1) ESRD (end stage renal disease) on dialysis HD today for 3.5 hrs using revaclear 400 dialyser, 3k/2.5Ca dialysate, 35 bicarb , 135 sodium, UF goal to DW of 100Kg Ams resolved aspiration pna on antibiotics intermittent Afib: managed by hospitalist likely discharge today, continue to follow with Dr Mckinney and ensure you do not m iss your dialysis Thank you for giving me an opportunity to participate in [facility] , appreciate it Status: Acute (2) Hyperkalemia Status: Acute (3) Altered mental status Status: Acute
--- NOTE | 2018-02-20 15:45 | Discharge Summary ---
Medical - DS: Prov Patient information: Note initiated : 02/20/18 at 3:39 pm Patient: Teressa Goodman 52 y/o F admitted on 02/15/18 for Hypocalcemia and CHS. Date of admission: 02/15/18 18:51 Discharge date: 02/20/18 Primary care physician: RUSLAN Mckinney Admitting clinician: Moustapha Ortiz Consults: 02/15/18 21:18 Consult to Physician [CONS] Routine Comment: Consulting Provider: Kristy Shah Reason For Exam: Physician to Consult Discharging clinician: Breana Macedo Medical - DS: Meds - Discharge Medications Prescriptions: Diltiazem [Cardizem Cd] 240 mg PO DAILY #30 cap.xl.24h Gabapentin [Neurontin] 100 mg PO HS #30 cap Active and Home Medications: Home Medications ALPRAZolam [Xanax] 0.5 mg PO TIDP PRN 02/15/18 [History Confirmed 02/15/18 Last Taken Unknown] Albuterol Sulfate [Proair Hfa] 8.5 gm IH QIDP PRN 02/15/18 [History Confirmed Last Taken Unknown] Atorvastatin [Lipitor] 1 tab PO QAM 02/15/18 [History Confirmed 02/15/18 Last Taken Unknown] Clopidogrel Bisulfate [Plavix] 1 tablet PO DAILY 02/15/18 [History Confirmed 08/04 Last Taken Unknown] Escitalopram Oxalate [Lexapro] 1 tab PO QAM 02/15/18 [History Confirmed Last Taken Unknown] Furosemide [Lasix] 80 mg PO QAM 02/15/18 [History Confirmed 02/15/18 Last Taken Unknown] Gabapentin [Neurontin] 300 mg PO HS 02/15/18 [History Confirmed 02/15/18 Last Taken Unknown] Ibuprofen/Oxycodone HCl [Oxycodone-Ibuprofen 5-400 Tab] 5 mg PO Q6HP PRN [History Confirmed 02/15/18 Last Taken Unknown] Linaclotide [Linzess] 1 cap PO QAM 02/15/18 [History Confirmed 02/15/18 Last Taken Unknown] Linagliptin [Tradjenta] 1 tab PO DAILY 02/15/18 [History Confirmed 02/15/18 Last Taken Unknown] Lisinopril [Zestril] 40 mg PO QAM 02/15/18 [History Confirmed 02/15/18 Last Taken Unknown] Melatonin 6 mg PO QHS 02/15/18 [History Confirmed 02/15/18 Last Taken Unknown] Omeprazole [Prilosec] 1 cap PO DAILY 02/15/18 [History Confirmed 02/15/18 Last Taken Unknown] Ondansetron HCl [Zofran ODT] 4 mg SL Q6HP PRN 02/15/18 [History Confirmed Last Taken Unknown] Pioglitazone [Actos] 15 mg PO QHS 02/15/18 [History Confirmed 02/15/18 Last Taken Unknown] Sevelamer [Renvela] 3,200 mg PO TIDCC 02/15/18 [History Confirmed 02/16/18 Last Taken Unknown] Zolpidem [Ambien] 5 mg PO HSP PRN 02/15/18 [History Confirmed 02/15/18 Last Taken Unknown] fluPHENAZine HCL [Fluphenazine HCl] 5 mg PO QHS 02/15/18 [History Confirmed 08/04 Last Taken Unknown] lamoTRIgine [LaMICtal] 50 mg PO BID 02/15/18 [History Confirmed 02/15/18 Last Taken Unknown] rOPINIRole [Requip] 0.5 mg PO HS PRN 02/15/18 [History Confirmed 02/15/18 Last Taken Unknown] Medical - DS: Hosp Hospital course: Summary: The patient is a 52 over female with end-stage renal disease who presented to the hospital with encephalopathy, evidence of volume overload, pneumonia. She admits to rounds of hemodialysis. She received dialysis, was started on antibiotics. Sedating medications, including her oxycodone and alprazolam were held. It was not until she received no locks own that she became more alert. The remainder of her hospitalization, she continued to become more alert until she was at baseline. The patient had proximal as well as atrial fibrillation with rapid ventricular response. She was loaded with amiodarone. She continued to have A. fib. She was treated with diltiazem, which broke the A. fib. Subsequently she was started on oral diltiazem, increase to 60 mg every 6 hours which was helping her maintain sinus rhythm and achieving rate control with any episodes of A. fib. The patient had minimal complaints of pain or anxiety. Her ibuprofen/ hydrocodone and alprazolam were not given during her hospitalization and I have taken these offer MAR. Lisinopril was stopped, she is now on diltiazem. Gabapentin was decreased to 100 mg at bedtime given her renal function. Ultrasound of the abdomen was obtained due to abnormal liver enzymes. This showed a 1.3 cm nodule posterior aspect of the right hepatic lobe. Old records from 2016 were obtained as well as images from [facility]. She had an old sent at that time which showed a similar lesion, the current one appears unchanged. No further imaging was indicated. 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 Issues of follow-up: 1. Assessment of rhythm and discussion of need for chronic anticoagulation if intermittent atrial fibrillation persists. 2. Evaluation of pain and anxiety regimen Hospital Course: 02/15 Ms. Goodman is a 52 year old F with history of diabetes on dialysis. Patient is followed by Dr. Mckinney. Patient gets dialyzed by Tuesday and Tuesday. The patient presented to [facility] ER today for altered mental status. According to the provider in the emergency room the patient has not had dialysis on Tuesday and again missed her dialysis on Tuesday today. The patient was quite drowsy and unable to provide a meaningful history. Patient did wake up on verbal commands as well as light touch however did not answer any meaningful questions. The patient workup was done at [facility] and it was noted that the patient has elevated BUN and creatinine. Patient needed dialysis on an urgent basis. Patient had elevated potassium. 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 [facility] did not have dialysis after 5 PM and the patient was therefore transferred to [facility] for further management. On my evaluation in the hospital at [facility] the patient was drowsy did not answer any questions. Patient was afebrile, heart rate normal, blood pressure soft systolic ranging between 90-110 and diastolic between 50-60. Respiratory rate around 10 -12. Patient blood work at outside hospital shows leukocytosis with WBC count of 13.3 , hemoglobin of 15, platelets 183. Anion gap 21 calcium 9.9 sodium 133 potassium 6.8 chloride 88 bicarbonate 24 BUN 105 creatinine 9.1 glucose was 89 urinalysis showed proteinuria 100, no signs of infection. Alkaline phosphatase elevated at 46 previously was 149 AST 51 previously 15 and ALT 32 previously 8. Patient had an ultrasound of the abdomen done in the past which showed that she is status post cholecystectomy. The patient was admitted to PCU for further management. 02/16 Pt seen examined, by the bed side, pt quite drowsy, but woke up with verbal commands, non coherent answers, patient was still having pin point pupils and was quite drowsy despite HD last night. The patient received 0.4mg of Narcan with good response and she woke up. Last night she had run of AFib with RVR not responding to metoprolol 5mg x 3, given labile blood pressure, amiodarone was initiated, pt hr is now back to sinus. I don't anticipate patient needing longterm amiodarone, she will complete the loading dose. The patient remains on antibiotics for Pneumonia, HCAP/ aspiration PNA Cultures neg so far Nephrology following, electrolytes stable, no need for HD today, anticipate tomorrow LFT abnormal, USG liver done, noted a liver mass, needs MRI for further evaluation, will be considered by oncoming provider. 02/17 Tolerated hemodialysis today. Remains awake, still groggy. Remained in NSR yesterday until end of amiodarone infusion shortly after midnight, then went back into A. fib. Eventually converted back to sinus rhythm after one IV dose of diltiazem. Went back into A. fib towards end of dialysis, again converted after 1 dose of IV diltiazem. Nephrology is recommended decreasing gabapentin 100 mg daily and stopping lisinopril at time of discharge. 02/18 Continues to improve, feels better today. Appetite is improved. Has not complained of pain in general to the nursing staff. Had been on high-dose pain medications previously. This continued to be held. Intermittently goes into A. fib with RVR, appears to becoming less common currently. 02/19 No specific complaints today, improved. In general, has not asked for pain medications. Still has intermittent bouts of atrial fibrillation with rapid ventricular response, though rate control is a bit improved during these episodes with oral diltiazem. Usually spontaneous cardioverted, though sometimes cardioverts after IV diltiazem. She does not recognize the diagnosis of atrial fibrillation, though wonder if she has had unrecognized paroxysmal atrial fibrillation for a while. Otherwise doing well, but cannot safely discharge without control of arrhythmia. 02/20 Rhythm improved, generally normal sinus rhythm. Old images and reports from prior liver imaging in 2016 from [facility], she had similar right hepatic lobe lesion back then. She also had biopsy showing granulomatous hepatitis. This is a known chronic issue. No further imaging. Discharge diagnosis: Metabolic/toxic encephalopathy Secondary discharge diagnosis: Volume overload due to missed HD Atrial fibrillation with RVR Pneumonia, probable HCAP, also treated for possible aspiration Chronic pain medication use, opioids stopped at discharge Sepsis, resolved Type 2 DM Hypertension, fosinopril stopped, diltiazem started Morbid Obesity/ FORREST on CPAP at night Psych disorder/ PTSD/ Anxiety; alprazolam stopped COPD Abnormal liver ultrasound-stable R hepatic lobe lesion - Time Spent with Patient Total time spent providing and/or coordinating discharge services: Greater than 30 minutes Medical - DS: Exam - Constitutional Vitals: Vital Signs Temp Pulse Pulse Resp BP Pulse Ox 02/20/18 15:27 97.2 F 20 156/60 99 02/20/18 15:25 68 156/60 02/20/18 15:10 59 L 151/57 02/20/18 14:55 61 134/58 02/20/18 14:40 58 L 133/57 02/20/18 14:25 58 L 137/54 02/20/18 14:10 58 L 140/53 02/20/18 13:55 60 149/59 02/20/18 13:40 64 158/61 02/20/18 13:25 98.6 F 69 18 147/56 02/20/18 12:41 98.4 F 18 119/77 95 02/20/18 08:00 70 16 96 02/20/18 07:46 98.0 F 16 121/74 96 02/20/18 07:31 64 16 02/20/18 04:05 97.4 F 22 122/67 99 02/20/18 00:07 111/67 02/19/18 21:40 98.5 F 18 95 02/19/18 20:00 96 02/19/18 19:40 62 18 93 02/19/18 15:54 97.4 F 17 118/65 97 Intake and Output 02/20/18 02/20/18 02/20/18 05:59 13:59 21:59 Intake Total 720 / 720 Output Total 150 / 150 Balance -150 / -150 720 / 720 Intake: Oral 720 / 720 Output: Void Amount 150 / 150 Other: Meal Lunch Percent of Meal Consumed 100% Feeding Ability Independent Weight 234 lb 1.28 oz Patient Weight 02/21/18 05:59 Weight 234 lb 1.28 oz Additional comments: General: In no acute distress, eager to be able to go home Chest: Clear, no rales, nonlabored Cardiovascular: Regular, no edema Abdomen: Obese, soft, nontender Neuro: Alert, oriented to person, place, situation, ambulating the halls. Medical - DS: Data Labs on day of discharge: Labs from last 24 hours 02/20/18 02/20/18 02/16/18 04:03 04:03 02:14 WBC 7.9 RBC 3.90 L Hgb 12.8 Hct 38.1 MCV 97.8 MCH 32.8 MCHC 33.5 RDW 14.7 H Plt Count 161 MPV 9.4 Gran % 62.5 Lymph % (Auto) 23.1 [place] % (Auto) 10.2 Eos % (Auto) 3.9 Baso % (Auto) 0.3 Gran # 4.9 Lymph # (Auto) 1.8 [place] # (Auto) 0.8 Eos # (Auto) 0.3 Baso # (Auto) 0 Sodium 131 L Potassium 4.1 Chloride 92 L Carbon Dioxide 25 Anion Gap 14.0 BUN 45 H Creatinine 6.2 H* GFR Calculation 7 Glucose 97 Uric Acid 4.7 Calcium 9.2 Phosphorus 3.5 Magnesium 2.2 Total Bilirubin 0.4 Direct Bilirubin < 0.2 GGT 157 H AST 30 ALT 25 Alkaline Phosphatase 297 H Lactate Dehydrogenase 168 Total Protein 5.7 L Albumin 2.9 L Globulin 2.8 Albumin/Globulin Ratio 1.0 Triglycerides 59 Ur L.pneumophila Ag Not detected Preliminary micro results at discharge 02/15/18 20:42 Blood Culture - Preliminary Blood 02/15/18 20:54 Blood Culture - Preliminary Blood - Imaging and Cardiology Chest x-ray Additional comments: IMPRESSION: No evidence of CHF. Vague diffuse right lung infiltrate and small left perihilar infiltrate. Consider: ARDS, aspiration pneumonia etc. If the patient can tolerate, a two view upright chest x-ray would be helpful US - abdomen Additional comments: 02/16 abd U/S IMPRESSION: Mild hepatomegaly with inhomogeneous elevated echotexture and slight nodularity of the cortical surface suggesting possible mild cirrhosis. There is also a 1.3 cm nodule in the posterior segment right hepatic lobe. Suggest: Abdominal MRI for more specific evaluation of cirrhosis and hepatoma evaluation ADDENDUM #1 A prior abdominal ultrasound performed at [facility] on 03/23/16 was obtained for comparison. In retrospect, the echogenic structure which is now seen beneath the capsule posteriorly in the right lobe of liver was probably present on the prior study. This appears to be a benign structure and could be a hemangioma or peritoneal fat adjacent to the capsule, within an inflection of the liver capsule. Interpreted and Authenticated by: Brian Koch 02/20/18 Medical - DS: A/P - Patient/Caregiver Discharge Instructions Activity: increase activity as tolerated Diet: Renal/Consistent Carbs Prescriptions: Diltiazem [Cardizem Cd] 240 mg PO DAILY #30 cap.xl.24h Gabapentin [Neurontin] 100 mg PO HS #30 cap - Follow up Plan Follow up with: Stephane Mckinney MD [Physician] - (Follow up at your dialysis appointment per Dr. Damico office; follow-up with Dr. Mckinney in 5-10 days.) Disposition: Home, Self-Care Prognosis: Fair Rehab Potential: Fair Overall status at discharge: patient is back to baseline Medical - DS: Qual - VTE Deep Vein Thrombosis/Pulmonary Embolism Present on Admission: No
== END 2018-02-20 18:00 | disposition home or self-care (01) | DRG 871 ==
LOC: ICU 18:51 → SUATTDRO 18:51
PROVIDERS: ADMIT Internal Medicine; ATTEND Internal Medicine

== ENCOUNTER 2018-07-28 21:33 | Inpatient (IN) ==
[2018-07-28] MEDS ORDERED: ACETAMINOPHEN 325 MG TABLET PO PRN (22:33)
[2018-07-28] MEDS ORDERED: ONDANSETRON 4 MG/2 ML VIAL IV PRN (22:33)
[2018-07-28] MEDS ORDERED: SODIUM POLYSTYRENE SULFONATE 15 GM/60 ML SUSPENSION PO ONE (22:35)
[2018-07-28] MEDS ORDERED: VANCOMYCIN 1,500 MG in 0.9 % SODIUM CHLORIDE 500 ML IV ONE (22:48)
[2018-07-28] MEDS ORDERED: VANCOMYCIN PER PHARMACY IV ONE (22:48)
[2018-07-28] MEDS ORDERED: LEVOFLOXACIN 750 MG/150 ML BAG IV ONE ×2 (22:49→22:56)
[2018-07-28] MEDS ORDERED: SODIUM POLYSTYRENE SULFONATE 15 GM/60 ML SUSPENSION ONE (22:52)
--- NOTE | 2018-07-28 23:05 | Internal Med History&Physical ---
Medical - H&P: HPI Patient information: Note initiated : 07/28/18 at 10:58 pm Service Date, if different from initiated Date: [] Patient: Teressa Goodman 52 y/o F admitted on 07/28/18 for Hyperkalemia. Chief Complaint: [] History of present illness: Ms. Goodman is a 52 year old F who is a poor historian, is admitted to this hospital from [facility] ER. The patient is a poor history provider, and chart review and talking to the patient provided most information. According to the ED provider the patient had not had dialysis for a week, she showed up for dialysis today and was on the machine for 1 hour, the patient became hypotensive and lethargic and therefore was sent to the emergency room for further evaluation. In the emergency room the patient was very lethargic, hypertensive, had pinpoint pupils, she was given Narcan with very good response. Her blood pressure improved as well as her mentation. The patient had no complaints. Vitals in the ER showed a temperature of 97.6, heart rate 85 respirations 16 blood pressure 96 x 54 saturating 96% on room air. Labs showed a WBC count of 6.0 hemoglobin 14 platelets 186 sodium 133 potassium 5.9 bicarbonate 24 creatinine 9.4 BUN 42 glucose 96, UA showed blood and large leukocyte esterase venous blood gas done showed pH of 7.36 PCO2 51 PO2 of 44. A arizmendi CT was done the report of which is not available, looking at the images it seems that the patient had a CT scan of the head neck thoracic vertebrae, CT chest abdomen and pelvis. The ED provider notified me that the patient had anasarca, ascites and left pleural effusion. Otherwise the scan was reported as negative The patient needs dialysis, [facility] does not have dialysis over the weekend and therefore the patient is being admitted to [facility] for further management. At the hospital here the patient was afebrile blood pressure was normal stable saturating 98% on room air. She was alert oriented x2 and did not really answer much questions was not sure why she did not go for dialysis, she noted that she has no headache no chest pain no shortness of breath no cough no abdominal pain no nausea no vomiting. Her previous admission was for a similar reason in which she was altered from opiates and responded to Narcan. All systems: reviewed and no additional remarkable complaints except as stated (as per HPI rest negative) Medical - H&P: PMH Medical history: Morbid obesity Diabetes ESRD COPD Obstructive sleep apnea Hypertension Chronic back pain Bipolar disorder Anxiety Hyperlipidemia Posttraumatic stress disorder Surgical history: History of cholecystectomy History of hysterectomy Pertinent family history: Mother was on dialysis Father cerebrovascular accident Social history: Lives with active smoker Medical - H&P: Meds Home Medications Medication Instructions Recorded Confirmed Type Albuterol Sulfate [Proair Hfa] 8.5 gm IH QIDP PRN 02/15/18 02/15/18 History Atorvastatin [Lipitor] 1 tab PO QAM 02/15/18 02/15/18 History Clopidogrel Bisulfate [Plavix] 1 tablet PO DAILY 02/15/18 02/15/18 History Escitalopram Oxalate [Lexapro] 1 tab PO QAM 02/15/18 02/15/18 History Furosemide [Lasix] 80 mg PO QAM 02/15/18 02/15/18 History Linaclotide [Linzess] 1 cap PO QAM 02/15/18 02/15/18 History Linagliptin [Tradjenta] 1 tab PO DAILY 02/15/18 02/15/18 History Melatonin 6 mg PO QHS 02/15/18 02/15/18 History Omeprazole [Prilosec] 1 cap PO DAILY 02/15/18 02/15/18 History Ondansetron [Zofran ODT] 4 mg SL Q6HP PRN 02/15/18 02/15/18 History Pioglitazone [Actos] 15 mg PO QHS 02/15/18 02/15/18 History Sevelamer [Renvela] 3,200 mg PO TIDCC 02/15/18 02/16/18 History Zolpidem [Ambien] 5 mg PO HSP PRN 02/15/18 02/15/18 History fluPHENAZine HCL [Fluphenazine HCl] 5 mg PO QHS 02/15/18 02/15/18 History lamoTRIgine [Lamictal] 50 mg PO BID 02/15/18 02/15/18 History rOPINIRole [Requip] 0.5 mg PO HS PRN 02/15/18 02/15/18 History Diltiazem [Cardizem Cd] 240 mg PO DAILY #30 cap.xl.24h 02/20/18 Rx Gabapentin [Neurontin] 100 mg PO HS #30 cap 02/20/18 Rx Allergies Allergy/AdvReac Type Severity Reaction Status Date / Time morphine Allergy Severe Hives Verified 02/15/18 19:35 Penicillins Allergy Severe Anaphylaxis Verified 02/15/18 19:38 adhesive tape AdvReac Intermediate Rash Verified 02/15/18 19:35 cephalexin AdvReac Intermediate Rash Verified 02/15/18 19:37 Sulfa (Sulfonamide AdvReac Mild Nausea Verified 02/15/18 20:09 Antibiotics) Medical - H&P: Exam - Constitutional Exam: GENERAL: The patient is a well-developed, well-nourished in no apparent distress. Is alert and oriented x2. Patient is morbidly obese VITAL SIGNS: Reviewed and as noted elsewhere. HEENT: Head is normocephalic and atraumatic. Extraocular muscles are intact. Pupils are equal, round, and reactive to light. Nares appeared normal. Mouth appears any without lesions. Mucous membranes are dry . NECK: Normal to inspection, Supple, No lymphadenopathy or thyromegaly. LUNGS: Air entry decreased in the left base,, no wheezing, crackles or rhonchi noted. No accessory muscles of respiration HEART: Regular rate and rhythm normal, S1 and S2 heard, no Gallop, S3 or Rub Noted, No Gross murmur heard. ABDOMEN: Soft, nontender, and nondistended. Positive bowel sounds. No hepatosplenomegaly was noted. Large pannus EXTREMITIES: No cyanosis, clubbing, rash, lesions, pitting edema +2 NEUROLOGIC: Cranial nerves II through XII are grossly intact. Motor and Sensory System Grossly Intact PSYCHIATRIC: Flat affect SKIN: No ulceration or wounds noted, No jaundice, No rash noted. Medical - H&P: A/P - Narrative A/P Narrative: A/P ESRD- On HD, missed HD x 1 week, follows with Dr Mckinney, he has been notified, aware that patients K is 5.9, he plans to initiate HD tomorrow. Hyperkalemia- Will give kayexalate tonight, monitor on tele, HD in AM Hypotension- Likely from narcotic overdose, pt responded to narcan. However given that she has pleural effusion and asicits, possible mild pna (on my view of CT) . Will get blood cultures, start on vancomycin and levofloxacin. DM - SSI insulin for glucose control HTN- Hold home bp meds HLD- resume home meds Bipolar disorder/anxiety/PTSD- Hold meds for now, till patient clears up more. Chr pain- on narcotics, will hold off same for now. Morbid obesity, outpatient management FORREST- try to get home cpap. supplement oxygen at night COPD - not wheezing, bronchodilators q6hrs DVT hep sq Diet carb consistent, renal Full code.
[2018-07-28] MEDS ORDERED: DEXTROSE 31 GM ORAL.SUSP PO PRN (23:15)
[2018-07-28] MEDS ORDERED: DEXTROSE 50% 50 ML VIAL IV PRN (23:15)
[2018-07-28] MEDS ORDERED: ACETAMINOPHEN 325 MG TABLET PO ONE (23:56)
[2018-07-29] MEDS: IPRATROPIUM/ALBUTEROL 3 ML AMPUL.NEB NEB SCH ×4 (02:19→19:37)
[2018-07-29 05:32] LABS: Basophils # (Auto) 0 K/mcL (0.0-0.3); Basophils % (Auto) 0.5 % (0.0-2.0); Eosinophils # (Auto) 0 K/mcL (0.0-0.7); Eosinophils % (Auto) 0.1 % (0.0-7.0); Granulocytes % (Auto) 78.8 % (38.0-78.0); Lymphocytes # (Auto) 0.7 K/mcL (1.5-4.8); Lymphocytes % (Auto) 10.1 % (15.5-49.0); Mean Cell Volume 95.8 fL (80.0-100.0); Mean Corpuscular HGB Conc 32.7 g/dL (31.0-36.0); Monocytes # (Auto) 0.7 K/mcL (0.1-0.9); Monocytes % (Auto) 10.5 % (1.0-12.0); Platelet Count 184 K/mcL (140-440); RBC 3.99 M/mcL (4.00-5.20); Red Cell Distribution Width 18.4 % (11.5-14.5)
[2018-07-29 05:59] LABS: ALT/SGPT 8 U/l (0-40); Albumin/Globulin Ratio 0.9 (1.0-2.3); Alkaline Phosphatase 112 U/L (39-117); Bilirubin,Direct 0.4 mg/dL (0.0-0.3); Blood Urea Nitrogen 43 mg/dl (6-20); Gamma Glutamyl Transpeptidase 43 U/L (5-36); Uric Acid 6.9 mg/dL (2.5-8.0)
[2018-07-29] MEDS: 0.9 % SODIUM CHLORIDE 10 ML SYRINGE IV SCH ×3 (06:17→21:10)
[2018-07-29] MEDS ORDERED: VANCOMYCIN PER PHARMACY IV SCH (07:30)
[2018-07-29] MEDS: PANTOPRAZOLE 40 MG TABLET PO SCH (08:22)
[2018-07-29] MEDS: NALOXONE HCL 0.4 MG/ML VIAL IV PRN (08:22)
[2018-07-29] MEDS: INSULIN LISPRO 1 UNIT/0.01 ML UNIT SQ SCH ×4 (08:50→21:10)
[2018-07-29] MEDS: SEVELAMER 800 MG TABLET PO SCH ×3 (09:08→17:30)
[2018-07-29] MEDS ORDERED: SEVELAMER 800 MG TABLET PO SCH (12:00)
--- NOTE | 2018-07-29 12:57 | Internal Med Progress Note ---
Medical - PN: Subj Patient information: Note initiated : 07/29/18 at 12:55 pm Service Date, if different from initiated Date: [] Patient: Teressa Goodman 52 y/o F admitted on 07/28/18 for Hyperkalemia. Chief Complaint: [] Interval history: Ms. Goodman is a 52 year old F who is a poor historian, is admitted to this [facility] from [facility]. The patient is a poor history provider, and chart review and talking to the patient provided most information. According to the ED provider the patient had not had dialysis for a week, she showed up for dialysis today and was on the machine for 1 hour, the patient became hypotensive and lethargic and therefore was sent to the emergency room for further evaluation. In the emergency room the patient was very lethargic, hypertensive, had pinpoint pupils, she was given Narcan with very good response. Her blood pressure improved as well as her mentation. The patient had no complaints. Vitals in the ER showed a temperature of 97.6, heart rate 85 respirations 16 blood pressure 96 x 54 saturating 96% on room air. Labs showed a WBC count of 6.0 hemoglobin 14 platelets 186 sodium 133 potassium 5.9 bicarbonate 24 creatinine 9.4 BUN 42 glucose 96, UA showed blood and large l eukocyte esterase venous blood gas done showed pH of 7.36 PCO2 51 PO2 of 44. A arizmendi CT was done the report of which is not available, looking at the images it seems that the patient had a CT scan of the head neck thoracic vertebrae, CT chest abdomen and pelvis. The ED provider notified me that the patient had anasarca, ascites and left pleural effusion. Otherwise the scan was reported as negative The patient needs dialysis, [facility] does not have dialysis over the weekend and therefore the patient is being admitted to [facility] for further management. At the hospital here the patient was afebrile blood pressure was normal stable saturating 98% on room air. She was alert oriented x2 and did not really answer much questions was not sure why she did not go for dialysis, she noted that she has no headache no chest pain no shortness of breath no cough no abdominal pain no nausea no vomiting. Her previous admission was for a similar reason in which she was altered from op iates and responded to Narcan. 07/29 Pt seen examined, no acute overnight issues some drowsiness, responed to narcan HD today Discussed case with patients , pt not going for HD as her back was hurting, at baseline is usually not ambulatory, helps with ADL, He is also giving her oxycodone, despite being stopped by her doctors. Pt has diarrhea, today in response to kayexalate. K was 5.1 today Pertinent ROS: Denies headache, dizziness Denies chest pain, palpitations Denies cough or shortness of breath Denies abdominal pain, nausea or vomiting. back pain, noted. - Constitutional Vitals: Vital Signs Temp Pulse Resp BP Pulse Ox 97.6 F 75 12 96/59 93 07/29/18 11:32 07/29/18 12:45 07/29/18 07:43 07/29/18 12:45 07/29/18 11:32 Period Temp Pulse Resp BP Sys/Hunter Pulse Ox Last 24 Hr 96.5 F-98.8 F 69-126 12-24 70-135/32-88 84-99 Intake and Output 07/28/18 07/29/18 07/29/18 21:59 05:59 13:59 Intake Total 380 / 380 20 / 20 Balance 380 / 380 20 / 20 Weight 222 lb 11.2 oz 222 lb 11.2 oz Patient Weight 07/30/18 05:59 Weight 222 lb 11.2 oz Intake & Output: Intake & Output 07/28/18 07/29/18 07/29/18 21:59 05:59 13:59 Intake Total 380 / 380 20 / 20 Balance 380 / 380 20 / 20 Weight 222 lb 11.2 oz 222 lb 11.2 oz Intake: IV 150 / 150 Oral 230 / 230 20 / 20 Other: Meal Breakfast Percent of Meal Consumed 50% Feeding Ability Independent Exam: Constitutional; Afebrile, cooperative, alert, not in distress. Eyes- No icterus, , No periorbital swelling Ears- Ext ear normal, hearing normal to conversation. Neck- Midline trachea, supple Respiratory system: Air Entry equal on both sides, No crackles or wheezing, no rhonchi.(ant exam) CVS- Rate rhythm regular, S1,S2 heard, no gallop, no rub. 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 generalized weakness overall. Medical - PN: Obj Da - Labs CBC & Chem 7: 07/29/18 04:00 07/29/18 04:00 Labs: Abnormal Lab Results 07/29/18 07/29/18 04:00 04:00 RBC 3.99 L RDW 18.4 H Gran % 78.8 H Lymph % (Auto) 10.1 L Lymph # (Auto) 0.7 L Chloride 94 L Anion Gap 17.0 H BUN 43 H Creatinine 10.1 H* Direct Bilirubin 0.4 H GGT 43 H Albumin 3.0 L Albumin/Globulin Ratio 0.9 L Meds: Medications Acetaminophen (Tylenol) 650 mg PO Q6HP PRN PRN Reason: PAIN/FEVER > 101 Albuterol/Ipratropium (Duoneb) 3 ml NEB Q6HRT [facility] Last Admin: 07/29/18 07:35 Dose: Not Given Documented by: Dextrose (Dextrose 50%) 0 ml IV UD PRN PRN Reason: Hypoglycemia Diagnostic Test (Pha) (Accu-Chek) 1 each FS [facility] Last Admin: 07/29/18 08:49 Dose: 1 each Documented by: Glucose (Insta-Glucose) 15 gm PO PRN PRN PRN Reason: Hypoglycemia Heparin Sodium (Porcine) (Heparin) 5,000 unit SQ Q12 [facility] Levofloxacin (Levaquin) 500 mg in 100 mls @ 100 mls/hr IV Q48H [facility] Insulin Human Lispro (Humalog) 0 unit SQ [facility]; Protocol Last Admin: 07/29/18 08:50 Dose: Not Given Documented by: Naloxone HCl (Narcan) 0.1 mg IV Q2MIN PRN PRN Reason: Opiate Reversal Last Admin: 07/29/18 08:22 Dose: 0.1 mg Documented by: Ondansetron HCl (Zofran) 4 mg IV Q4HP PRN PRN Reason: Nausea And Vomiting Pantoprazole Sodium (Protonix) 40 mg PO QAMAC [facility] Last Admin: 07/29/18 08:22 Dose: 40 mg Documented by: Sevelamer Carbonate (Renvela) 3,200 mg PO TIDCC [facility] Last Admin: 07/29/18 09:08 Dose: 3,200 mg Documented by: Sodium Chloride (Saline Flush) 10 ml IV Q8 [facility] Last Admin: 07/29/18 06:17 Dose: 10 ml Documented by: Vancomycin HCl (Vancomycin Per Pharmacy) 1 order IV UD [facility] Medical - PN: A/P - Time Spent With Patient Total time spent is greater than 50% in coordination of care (as documented) at patient's floor/unit and/or counseling patient: - Narrative A/P Narrative: A/P ESRD- On HD, missed HD x 1 week, due to back pain, taking narcotics, HD today Ascitis/Pleural effusin- will try to get diagnostic tap to further evaluate underling etiology Hyperkalemia- resolved. Hypotension- Likely from narcotic overdose, pt responded to narcan. However given that she has pleural effusion and asicits, possible mild pna (on my view of CT) . Will get blood cultures, start on vancomycin and levofloxacin. Follow up results BP stable DM - SSI insulin for glucose control HTN- Hold home bp meds HLD- resume home meds Bipolar disorder/anxiety/PTSD- Hold meds for now, till patient clears up more.Pt better this AM but still a bit confused. Chr pain- not on narcotics, as per , but still giving her which likely lead to present state Morbid obesity, outpatient management FORREST- try to get home cpap. supplement oxygen at night COPD - not wheezing, bronchodilators q6hrs DVT hep sq Diet carb consistent, renal Full code. Medical - PN: Qual - VTE Deep Vein Thrombosis/Pulmonary Embolism Present on Admission: No
[2018-07-29] MEDS: HEPARIN 5,000 UNIT/ML VIAL SQ SCH ×2 (14:09→21:09)
[2018-07-29 14:25] LABS: Vancomycin,Random 9.6 ug/mL
[2018-07-29] MEDS ORDERED: VANCOMYCIN 1,000 MG in 0.9 % SODIUM CHLORIDE 250 ML IV ONE (18:00)
[2018-07-29] MEDS ORDERED: SIMETHICONE 80 MG TAB.CHEW CHEWED PRN (19:50)
[2018-07-30] MEDS: IPRATROPIUM/ALBUTEROL 3 ML AMPUL.NEB NEB SCH ×2 (00:51→07:16)
[2018-07-30] MEDS ORDERED: 0.9 % SODIUM CHLORIDE 250 ML IV SCH (04:15)
[2018-07-30] MEDS ORDERED: VASOPRESSIN 20 UNIT in DEXTROSE 5% IN WATER 99 ML IV SCH (04:15)
[2018-07-30] MEDS ORDERED: VASOPRESSIN 20 UNIT/ML VIAL ONE (04:15)
[2018-07-30] MEDS: 0.9 % SODIUM CHLORIDE 10 ML SYRINGE IV SCH (05:02)
[2018-07-30 05:24] LABS: Basophils # (Auto) 0 K/mcL (0.0-0.3); Basophils % (Auto) 0.3 % (0.0-2.0); Eosinophils # (Auto) 0 K/mcL (0.0-0.7); Eosinophils % (Auto) 0.2 % (0.0-7.0); Lymphocytes # (Auto) 0.9 K/mcL (1.5-4.8); Lymphocytes % (Auto) 17.7 % (15.5-49.0); Mean Cell Volume 94.9 fL (80.0-100.0); Mean Corpuscular HGB Conc 33.1 g/dL (31.0-36.0); Monocytes # (Auto) 0.6 K/mcL (0.1-0.9); Monocytes % (Auto) 10.8 % (1.0-12.0); Platelet Count 165 K/mcL (140-440); RBC 3.79 M/mcL (4.00-5.20); Red Cell Distribution Width 18.5 % (11.5-14.5)
[2018-07-30 05:57] LABS: ALT/SGPT 7 U/l (0-40); Albumin 2.9 gm/dL (3.2-5.2); Alkaline Phosphatase 109 U/L (39-117); Bilirubin,Direct 0.4 mg/dL (0.0-0.3); Blood Urea Nitrogen 19 mg/dl (6-20); Gamma Glutamyl Transpeptidase 45 U/L (5-36); Uric Acid 3.7 mg/dL (2.5-8.0)
[2018-07-30] MEDS: NALOXONE HCL 0.4 MG/ML VIAL IV PRN (06:01)
[2018-07-30] MEDS ORDERED: MIDODRINE 5 MG TABLET PO ONE (06:06)
[2018-07-30] MEDS: MIDODRINE 5 MG TABLET PO SCH ×3 (06:13→09:47)
[2018-07-30] MEDS ORDERED: MIDODRINE 5 MG TABLET PO SCH (07:00)
[2018-07-30] MEDS ORDERED: NALOXONE HCL 1 MG in 0.9 % SODIUM CHLORIDE 250 ML IV SCH ×2 (07:15→10:00)
[2018-07-30] MEDS ORDERED: NALOXONE HCL 0.4 MG/ML VIAL IV PRN (08:44)
[2018-07-30] MEDS ORDERED: LEVOFLOXACIN 500 MG/100 ML BAG IV SCH ×2 (09:00)
--- NOTE | 2018-07-30 09:31 | Consultation ---
DATE OF CONSULTATION: 07/30/2018 REFERRING PHYSICIAN: Moustapha Ortiz MD. REASON FOR CONSULTATION: End-stage renal disease. The patient is a 52-year-old female with a past medical history significant for end-stage renal disease on hemodialysis three times a week at [facility]. She has been noncompliant for the last several months. She misses dialysis frequently and even when she comes in, she stays for an hour or 2. She had multiple complaints of why she is not coming to dialysis. Several attempts to educate her regarding the consequences have not been very successful. Apparently she fell last week and has been taking some pain medications, and I do not know who prescribed it. She came into [facility] dialysis on Tuesday and found to be lethargic, hypotensive with pinpoint pupils. She was sent to [facility] after an hour of dialysis because she continued to be hypotensive. In the hospital, she was given Narcan with very good response. Her blood pressure and mentation improved significantly. Her potassium was 4.9. For that reason, she was transferred over to the [facility] as there was no dialysis over the weekend at [facility]. Here in the hospital, she has been hypotensive throughout. Her blood pressures have been ranging from 70 systolic to 90 systolic. This morning, I had them give Narcan one dose. She responded to being awake and somewhat jittery and complained that she does not want to be on the Narcan drip. She was given midodrine at the same time, but mental response is not related to the midodrine and it was given orally anyway. PAST MEDICAL HISTORY: Significant for 1. End-stage renal disease on hemodialysis, dialyzes on Tuesday, Tuesday, Fridays at [facility]. 2. Type 2 diabetes, longstanding with all the complications of diabetes. 3. Chronic obstructive sleep apnea. 4. COPD, with continue to smoke. 5. Hypertension. 6. Chronic back pain. 7. Bipolar disorder. 8. Anxiety. 9. Hyperlipidemia. 10. Posttraumatic stress disorder. PAST SURGICAL HISTORY: History of cholecystectomy and hysterectomy. FAMILY HISTORY: Mother was on dialysis. Father had cerebrovascular accident. SOCIAL HISTORY: The patient lives with her significant other. MEDICATIONS ON ADMISSION: 1. She is on albuterol inhaler. 2. Lipitor 10 mg 1 tablet once daily. 3. Plavix 75 mg once daily. 4. Lexapro 1 tablet once daily. 5. Lasix 80 mg in the morning. 6. Tradjenta 1 tablet once daily. 7. Melatonin 6 mg at night. 8. Omeprazole 1 capsule daily. 9. Zofran ODT. 10. Actos 15 mg daily. 11. Sevelamer 3200 mg daily. 12. Ambien 5 mg at night p.r.n. 13. Fluphenazine 5 mg at night. 14. Lamictal 50 mg twice daily. 15. Ropinirole 0.5 mg at night. 16. Cardizem-CD 240 mg daily. 17. Gabapentin 100 mg at night. REVIEW OF SYSTEMS: Ten systems were reviewed and as indicated in the history of present illness. Presently after the Narcan, she does not want any more of the Narcan because she is shaky and it makes her " PHYSICAL EXAMINATION: GENERAL: Alert, oriented x2, not in any distress. VITAL SIGNS: Blood pressures have been 70 to 90 systolic with a diastolic in the 70s. After the Narcan, her blood pressure went up to 150/84. Pulse rates have been in 80s before the Narcan and after the Narcan, the pulse rates have been in the 120s. Respiration is 20. Temperature was 97.8. HEENT: NC. AT. PERRLA. EOMI. No pallor, no cyanosis, and no icterus. Fundus examination is not performed. External auditory canal appears normal. Oral cavity appears normal. Normal mucosa. NECK: Supple. No jugular venous distention. No lymphadenopathy. No thyromegaly. No carotid bruits. LUNGS: Decreased air entry bilaterally. No rales or rhonchi heard. CARDIAC: S1 and S2 heard. No S3, S4. No murmurs. No rubs. ABDOMEN: Soft, nontender. No organomegaly. Positive bowel sounds. No mass, no rebound. EXTREMITIES: Showed 1+ edema and difficult to palpate dorsalis pedis and posterior tibialis. No skin rash or joint swellings noted. NEUROLOGIC: Grossly intact. She is moving upper extremities. LABORATORY DATA: White count is 5.3 with hemoglobin of 11.9 and a platelet count of 165. Sodium 136, potassium 3.5, chloride of 93, CO2 of 28, BUN of 19 with a creatinine of 6.0. Her calcium is 8.7 with a phosphorus of 3.1. ASSESSMENT AND PLAN: 1. End-stage renal disease on hemodialysis. She misses her dialysis fairly regularly. We will dialyze her back to back over the weekend and tomorrow as well and see how she does. 2. Mental status clear, related to narcotic medication. She had a progressive response to Narcan. She had a positive response with respect to her mentation, blood pressure and pulse rate and it was immediately after the Narcan and unlikely to be related to midodrine, so I will discontinue all the possible narcotics and check a urine serum and urine toxicology. 3. Volume status. Obviously grossly volume overloaded. Her chest x-ray showed pleural effusion. An echocardiogram has been performed and there was a question of pericardial effusion, so we will continue to remove fluid as much as possible. Yesterday's dialysis was not very successful because her blood pressures were low. We will try to use midodrine and vasopressin to support the blood pressure. The low blood pressure is clearly related to narcotics. 4. Anemia. Hemoglobin okay. 5. Renal bone disease. Calcium and phosphorus are adequate. Thank you Dr. Ortiz for referring this patient to our consultation. WEI:talon Job ID: [id number] Doc ID: [id number] Stephane Ortiz MD
[2018-07-30] MEDS: INSULIN LISPRO 1 UNIT/0.01 ML UNIT SQ SCH (09:52)
[2018-07-30] MEDS: SEVELAMER 800 MG TABLET PO SCH (09:53)
[2018-07-30] MEDS: PANTOPRAZOLE 40 MG TABLET PO SCH (09:53)
--- NOTE | 2018-07-30 11:20 | Internal Med Progress Note ---
Medical - PN: Subj Patient information: Note initiated : 07/30/18 at 11:17 am Service Date, if different from initiated Date: [] Patient: Teressa Goodman 52 y/o F admitted on 07/28/18 for Hyperkalemia. Chief Complaint: [] Interval history: Ms. Goodman is a 52 year old F who is a poor historian, is admitted to this [facility] from [facility] ER. The patient is a poor history provider, and chart review and talking to the patient provided most information. According to the ED provider the patient had not had dialysis for a week, she showed up for dialysis today and was on the machine for 1 hour, the patient became hypotensive and lethargic and therefore was sent to the emergency room for further evaluation. In the emergency room the patient was very lethargic, hypertensive, had pinpoint pupils, she was given Narcan with very good response. Her blood pressure improved as well as her mentation. The patient had no complaints. Vitals in the ER showed a temperature of 97.6, heart rate 85 respirations 16 blood pressure 96 x 54 saturating 96% on room air. Labs showed a WBC count of 6.0 hemoglobin 14 platelets 186 sodium 133 potassium 5.9 bicarbonate 24 creatinine 9.4 BUN 42 glucose 96, UA showed blood and large l eukocyte esterase venous blood gas done showed pH of 7.36 PCO2 51 PO2 of 44. A arizmendi CT was done the report of which is not available, looking at the images it seems that the patient had a CT scan of the head neck thoracic vertebrae, CT chest abdomen and pelvis. The ED provider notified me that the patient had anasarca, ascites and left pleural effusion. Otherwise the scan was reported as negative The patient needs dialysis, [facility] does not have dialysis over the weekend and therefore the patient is being admitted to [facility] for further management. At the hospital here the patient was afebrile blood pressure was normal stable saturating 98% on room air. She was alert oriented x2 and did not really answer much questions was not sure why she did not go for dialysis, she noted that she has no headache no chest pain no shortness of breath no cough no abdominal pain no nausea no vomiting. Her previous admission was for a similar reason in which she was altered from op iates and responded to Narcan. 07/29 Pt seen examined, no acute overnight issues some drowsiness, responed to narcan HD today Discussed case with patients , pt not going for HD as her back was hurting, at baseline is usually not ambulatory, helps with ADL, He is also giving her oxycodone, despite being stopped by her doctors. Pt has diarrhea, today in response to kayexalate. K was 5.1 today 07/30 Patient seen examined, overnight events noted, pt was hypotensive overnight, drowsy with pin point pupils, narcan was given with good response Microbiology is still negative Pt declined ascitic tap/ thoracocentesis for further evaluation of any possible infectious source. Explained to her and that not treating any possible infection appropriately could be life threatening, she still declined. The patient declined use of narcan saying it makes her feel not good. I explained to her that that would not be a option, especially if she becomes unresponsive and becomes hemodynamically unstable. She initially wished for dialysis, Pt had gotten Midodrine, and was placed on a vasopressin drip to maintain blood pressure. Despite this the patient had low bp during dialysis, and was drowsy with pin point pupils. Narcan had to be given again, this time again with good response, she became more awake, and her blood pressure improved from 86 systolic to 140 systolic. The patient, POA, and I was informed pt mother (on the phone) were not happy with the idea of using narcan. I explained to pt and the significant other that not using narcan when pt is hemodynamically unstable would not be a choice that I can give, especially when there is no other treatment option. The pt denies using any narcotics in the hospital, and the significant other (POA) denies giving it to her, I still have my doubts that she may have been given these medications as it would be difficult to explain intermittent changes in mental status with pin point pupils and good response to narcan. The POA then noted that he would like to take the patient home. The patient has been approved for hospice and they would want to go home. I explained to them that going home would not be in the patients best interest, the patient and the POA insisted on going home, fully understanding the risks including .Pt will sign out AMA Dr Mckinney was notified. Pertinent ROS: Denies headache, dizziness Denies chest pain, palpitations Denies cough or shortness of breath Denies abdominal pain, nausea or vomiting. - Constitutional Vitals: Vital Signs Temp Pulse Resp BP Pulse Ox 98.3 F 124 H 24 H 145/101 98 07/30/18 10:05 07/30/18 10:05 07/30/18 06:42 07/30/18 10:05 07/30/18 06:42 Period Temp Pulse Resp BP Sys/Hunter Pulse Ox Last 24 Hr 96.5 F-98.9 F 73-131 12-24 61-152/30-101 85-99 Intake and Output 07/29/18 07/30/18 07/30/18 21:59 05:59 13:59 Intake Total 350 / 420 50 / 420 180 / 180 Output Total 620 / 620 Balance 350 / -2080 50 / -2080 -440 / -440 Weight 223 lb 12.8 oz Intake & Output: Intake & Output 07/29/18 07/30/18 07/30/18 21:59 05:59 13:59 Intake Total 350 / 420 50 / 420 180 / 180 Output Total 620 / 620 Balance 350 / -2080 50 / -2080 -440 / -440 Weight 223 lb 12.8 oz Intake: IV 250 / 250 Oral 100 / 170 50 / 170 180 / 180 Output: Hemodialysis UF 620 / 620 Other: Meal Dinner Exam: Constitutional; Afebrile, cooperative, alert, not in distress. later became drowsy, with point point pupils, obese individual Eyes- No icterus, , No periorbital swelling , Ears- Ext ear normal, hearing normal to conversation. Neck- Midline trachea, supple Respiratory system: Air Entry equal on both sides, No crackles or wheezing, no r honchi. anterior exam only. CVS- Rate rhythm regular, S1,S2 heard, no gallop, no rub. 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 Medical - PN: Obj Da - Labs CBC & Chem 7: 07/30/18 03:55 07/30/18 03:55 Labs: Abnormal Lab Results 07/30/18 07/30/18 07/29/18 03:55 03:55 14:51 RBC 3.79 L Hgb 11.9 L Hct 35.9 L RDW 18.5 H Gran % Lymph % (Auto) Lymph # (Auto) 0.9 L PT 16.1 H INR 1.3 H APTT 38 H Chloride 93 L Anion Gap BUN Creatinine 6.0 H* Glucose 110 H Direct Bilirubin 0.4 H GGT 45 H Total Protein 5.7 L Albumin 2.9 L Albumin/Globulin Ratio 07/29/18 07/29/18 04:00 04:00 RBC 3.99 L Hgb Hct RDW 18.4 H Gran % 78.8 H Lymph % (Auto) 10.1 L Lymph # (Auto) 0.7 L PT INR APTT Chloride 94 L Anion Gap 17.0 H BUN 43 H Creatinine 10.1 H* Glucose Direct Bilirubin 0.4 H GGT 43 H Total Protein Albumin 3.0 L Albumin/Globulin Ratio 0.9 L Meds: Medications Acetaminophen (Tylenol) 650 mg PO Q6HP PRN PRN Reason: PAIN/FEVER > 101 Last Admin: 07/29/18 21:16 Dose: 650 mg Documented by: Albuterol/Ipratropium (Duoneb) 3 ml NEB Q6HRT [facility] Last Admin: 07/30/18 07:16 Dose: Not Given Documented by: Dextrose (Dextrose 50%) 0 ml IV UD PRN PRN Reason: Hypoglycemia Last Admin: 07/29/18 14:13 Dose: 25 ml Documented by: Diagnostic Test (Pha) (Accu-Chek) 1 each FS ACHS [facility] Last Admin: 07/30/18 09:52 Dose: 1 each Documented by: Glucose (Insta-Glucose) 15 gm PO PRN PRN PRN Reason: Hypoglycemia Heparin Sodium (Porcine) (Heparin) 5,000 unit SQ Q12 [facility] Last Admin: 07/29/18 21:09 Dose: 5,000 unit Documented by: Levofloxacin (Levaquin) 500 mg in 100 mls @ 100 mls/hr IV Q48H [facility] Sodium Chloride (Sodium Chloride 0.9%) 250 mls @ 20 mls/hr IV .[id number] [facility] Last Admin: 07/30/18 04:30 Dose: 8 mls/hr Documented by: Vasopressin 20 unit/ Dextrose 100 mls @ 12 mls/hr IV Q8H [facility]; Protocol Last Admin: 07/30/18 05:03 Dose: Not Given Documented by: Naloxone HCl 1 mg/ Sodium (Chloride) 252.5 mls @ 50.5 mls/hr IV .Q5H [facility]; Protocol Insulin Human Lispro (Humalog) 0 unit SQ ACHS [facility]; Protocol Last Admin: 07/30/18 09:52 Dose: Not Given Documented by: Midodrine (Midodrine Hcl) 10 mg PO BID@0700,1700 [facility] Last Admin: 07/30/18 09:47 Dose: 10 mg Documented by: Naloxone HCl (Narcan) 0.4 mg IV Q2MIN PRN PRN Reason: Opiate Reversal Last Admin: 07/30/18 09:48 Dose: 0.4 mg Documented by: Ondansetron HCl (Zofran) 4 mg IV Q4HP PRN PRN Reason: Nausea And Vomiting Pantoprazole Sodium (Protonix) 40 mg PO QAMAC [facility] Last Admin: 07/30/18 09:53 Dose: Not Given Documented by: Sevelamer Carbonate (Renvela) 3,200 mg PO TIDCC [facility] Last Admin: 07/30/18 09:53 Dose: Not Given Documented by: Simethicone (Mylicon) 80 mg CHEWED Q6HP PRN PRN Reason: Dyspepsia Last Admin: 07/29/18 21:02 Dose: 80 mg Documented by: Sodium Chloride (Saline Flush) 10 ml IV Q8 [facility] Last Admin: 07/30/18 05:02 Dose: 10 ml Documented by: Vancomycin HCl (Vancomycin Per Pharmacy) 1 order IV UD [facility] Medical - PN: A/P - Time Spent With Patient Total time spent is greater than 50% in coordination of care (as documented) at patient's floor/unit and/or counseling patient: - Narrative A/P Narrative: A/P ESRD- pt declined further HD. Ascitis/Pleural effusion- Pt declined intervention. Hyperkalemia- resolved. Hypotension-due to narcotic overdose, responds to narcan, blood culture neg. Patient signed out AMA Medical - PN: Qual - VTE Deep Vein Thrombosis/Pulmonary Embolism Present on Admission: No
== END 2018-07-30 11:00 | disposition home or self-care (01) | DRG 640 ==
LOC: ICU → OBSVTOIN 22:10
PROVIDERS: ADMIT Internal Medicine; ATTEND Internal Medicine